=== PATIENT | female | born 1965 | race Caucasian/White ===

== ENCOUNTER → 2016-12-17 | Day surgery (SDC) | payer OTHER ==
[~2016-12-17] VITALS: Ht 165.1 cm; Wt 73.0 kg
[~2016-12-17] MED LIST: CEFAZOLIN 1GM IVPB FOR OMNI 50 ML IV PRN; COLE1TAB2 PO; DEXAMETHASONE SOD PHOS 20 MG/5 ML VIAL. ONE; DIAZ5TAB PO; ELET20TA PO; FAMOTIDINE 20 MG/2 ML VIAL ONE; FENTANYL PF 100 MCG/2 ML VIAL. IV PRN; FENTANYL PF 100 MCG/2 ML VIAL. ONE; GABA-586 PO; HYDR-2672 PO; HYDR-963 PO; HYDR-965 PO; HYDR-971 PO; HYDR25TA PO; HYDROCODONE/APAP 7.5/325MG TABLET. PO ONE; HYDROMORPHONE 2 MG/ML VIAL. IV PRN; IBUP-1007 PO; IV RINGERS,LACTATED 1000ML 1,000 ML IV SCH; LIDOCAINE 1% 1 ML SYRINGE. ID PRN; LIDOCAINE 2% 100 MG/5 ML DISP.SYRIN. ONE; MECL-51 PO; MIDAZOLAM HCL 2 MG/2 ML VIAL. ONE; MORPHINE SULFATE 2 MG/ML DISP.SYRIN. IV PRN; NAPR500T3 PO; OMEP20TA PO; ONDA4TAB7 PO; ONDANSETRON PF 4 MG/2 ML VIAL. IV PRN; ONDANSETRON PF 4 MG/2 ML VIAL. ONE; PROAIR HFA8.5 GM INH; PROCHLORPERAZINE 10 MG/2 ML VIAL. IV PRN; PROPOFOL 20 ML IV ONE; ROPIVacaine 0.2% PF 10 ML VIAL. ONE; SEVOFLURANE 31 TO 60 MINUTES. IH ONE; TIZA4CAP PO; diclofenac topical
--- NOTE | 2016-12-17 06:45 | EKG ---
[facility] [address] [place] [address] Test Date: 2016-12-17 Test Time: 06:52:05 Pat Name: HEATH RODRIGUEZ Department: Room: Gender: F [employer] Priest: JOSE : 1965 Requested By: BENJY STEVENSON Order Number: [id number] Reading MD: Measurements Intervals [place] Rate: 81 P: 59 [place]: 156 QRS: 65 QRSD: 70 T: 66 QT: 372 QTc: 438 Interpretive Statements SINUS RHYTHM NO SPECIFIC ECG ABNORMALITIES RI6.01 No previous ECG available for comparison
[2016-12-17] MEDS: FENTANYL PF 100 MCG/2 ML VIAL. IV PRN ×4 (09:10→09:56)
--- NOTE | 2016-12-17 09:24 | DISCH ---
DISCHARGE INSTRUCTIONS Condition on Discharge Condition on Discharge: Stable Activity After Discharge Activity Instructions for Disc: Activity as tolerated Weight Bearing Status after Di: Full weight bearing Diet after Discharge Diet after Discharge: Regular Wound Incision Care Wound/Incision Care: Ice to area for comfort, Keep wound elevated, Change dressing Other wound/incision instructi: Remove dressing 2 days may then shower Contacting the DRRiccardo after DC Call your doctor for: Concerns you may have Follow-Up Follow up with: Mariya 10-14 days BENJY STEVENSON MD Dec 17, 2016 09:24
--- NOTE | 2016-12-17 09:29 | PDOC ---
BRIEF OPERATIVE NOTE Date: Dec 17, 2016 Pre-Op Diagnosis loose body Post-Op Diagnosis same plus medial meniscal tear and medial compartment wear Procedure Performed left knee arthroscopy, partial medial menisectomy, removal loose body Surgeon Mariya Anesthesia Type: General Blood Loss <5cc Findings above Complications none BENJY STEVENSON MD Dec 17, 2016 09:29
[2016-12-17 10:35] VITALS: BP 116/72
--- NOTE | 2016-12-17 11:53 | OP ---
DATE OF SURGERY: 12/17/2016 PREOPERATIVE DIAGNOSES: Loose body of left knee with some mild medial compartment degenerative change. 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 PROCEDURES: Left knee arthroscopy, partial medial meniscectomy, removal of loose body. SURGEON: Nagi Meraz M.D. ANESTHESIA: General endotracheal. ESTIMATED BLOOD LOSS: Less than 5 mL. COMPLICATIONS: None. OPERATIVE INDICATIONS: The patient is a 51-year-old female who had pain and locking and catching sensation of her left knee that has been unresponsive to injections and other nonoperative management, these are severely affecting her activities of daily living. She has had literally locking up episodes of the knee, some more and some less severe, but several and an on ongoing fashion very limiting to her activities. The knee feels unstable and gives way on her with these episodes and is really getting worse. I had gone over with her the possibility of a knee arthroscopy and suturing and removal of a loose body ____ I could also address any other mechanical issues, but certainly could not undo any degenerative changes that are present, which would have to be dealt with on an ongoing symptomatic manner. All her questions were answered regarding the procedure and the possible risks of infection, nerve or blood vessel damage, medical or other anesthetic complications, continued pain among others and she agrees to proceed. DESCRIPTION OF PROCEDURE: The patient was identified, procedure verified, patient placed in the supine position on operating table and after adequate amounts of general endotracheal anesthesia were administered, left lower extremity was prepped and draped in the standard sterile fashion with a thigh tourniquet. After timeout was performed, the patient and procedure identified and verified, the left lower extremity was exsanguinated by Esmarch bandage. Tourniquet inflated to 300 mmHg. A lateral portal was established, medial portal established using spinal needle localization and the knee joint was systematically examined. She was noted to have excellent patellofemoral articulation with minimal chondromalacia present, no debridement required, good patellofemoral tracking. There was a small osteophyte or cartilage irregularity over the lateral aspect of the trochlear, but really outside of the normal weightbearing surface. No loose bodies were noted in the gutters or suprapatellar pouch. She did have grade 4 chondromalacia over an anterior medial portion of the tibial weightbearing surface and of the femoral condyle in a contacting fashion. No loose cartilage there was noted, but she did have a small tear in the posterior horn of the medial meniscus, which was trimmed back to stable tissue using arthroscopic shaver. ACL was noted to be intact. There was a loose body that was actually located at the lateral aspect of the intercondylar notch, which was retrieved through the enlarged medial portal. Lateral compartment showed a very small cartilage irregularity at the medial aspect toward the tibial spine, but otherwise really preceding cartilage and lateral meniscus was probed and found to be intact. Posterior compartment showed no evidence of loose body. The knee was then again toured to make sure no ____ loose bodies. There were some small cartilage fragments in the suprapatellar pouch. They were evacuated with arthroscopic shaver. The knee was drained of arthroscopic fluid. Portals closed with nylon sutures. Before sterile dressings were applied, the knee was injected with about 8 mL of 0.2% plain ropivacaine. Sterile dressings were then applied. Tourniquet was deflated after a total tourniquet time about 25 minutes. The patient was extubated and transferred to postop holding in stable condition, having tolerated the procedure well. NAGI MERAZ MD DR: AMANDA/randee JOB#: [id number] / [id number] LATOYA Soler MD
== END | disposition home or self-care (01) ==
LOC: SURG 06:01
PROVIDERS: ATTEND Orthopaedic Surgery
DX: S83.242A Other tear of medial meniscus, current injury, left knee, initial encounter (principal); M23.42 Loose body in knee, left knee; M94.262 Chondromalacia, left knee; M19.90 Unspecified osteoarthritis, unspecified site; E66.9 Obesity, unspecified; X58.XXXA Exposure to other specified factors, initial encounter; Y93.9 Activity, unspecified; Y92.9 Unspecified place or not applicable; Y99.9 Unspecified external cause status; Z90.710 Acquired absence of both cervix and uterus
CPT/HCPCS: 29881; 93005; J0690; J1100; J2250; J2405; J2704; J2795; J3010; S0028

== ENCOUNTER 2017-05-23 08:52 | Emergency (ER) | payer OTHER ==
[~2017-05-23] VITALS: Ht 170.2 cm; Wt 71.7 kg
[~2017-05-23 08:52] MED LIST changes: -CEFAZOLIN 1GM IVPB FOR OMNI 50 ML IV PRN; -DEXAMETHASONE SOD PHOS 20 MG/5 ML VIAL. ONE; -FAMOTIDINE 20 MG/2 ML VIAL ONE; -FENTANYL PF 100 MCG/2 ML VIAL. IV PRN; -FENTANYL PF 100 MCG/2 ML VIAL. ONE; -HYDR-2672 PO; +HYDR-2766 PO; -HYDROCODONE/APAP 7.5/325MG TABLET. PO ONE; -HYDROMORPHONE 2 MG/ML VIAL. IV PRN; -IV RINGERS,LACTATED 1000ML 1,000 ML IV SCH; -LIDOCAINE 1% 1 ML SYRINGE. ID PRN; -LIDOCAINE 2% 100 MG/5 ML DISP.SYRIN. ONE; -MIDAZOLAM HCL 2 MG/2 ML VIAL. ONE; -MORPHINE SULFATE 2 MG/ML DISP.SYRIN. IV PRN; -OMEP20TA PO; +OMEP20TA8 PO; -ONDANSETRON PF 4 MG/2 ML VIAL. IV PRN; -ONDANSETRON PF 4 MG/2 ML VIAL. ONE; -PROCHLORPERAZINE 10 MG/2 ML VIAL. IV PRN; -PROPOFOL 20 ML IV ONE; -ROPIVacaine 0.2% PF 10 ML VIAL. ONE; -SEVOFLURANE 31 TO 60 MINUTES. IH ONE
[2017-05-23] MEDS ORDERED: IPRATRPIUM/ALBUTEROL 0.5/2.5MG 3 ML NEBU. NEB ONE (09:15)
[2017-05-23] MEDS ORDERED: IBUPROFEN 800 MG TABLET. PO ONE (09:15)
[2017-05-23] MEDS ORDERED: CYCLOBENZAPRINE 10 MG TABLET. PO ONE (09:15)
[2017-05-23] MEDS ORDERED: CYCL10TA2 PO (09:26)
--- NOTE | 2017-05-23 09:26 | PHYS DOC ---
Past Medical History Past Medical History: Other Additional Past Medical Histor: IBS,migraines Past Surgical History: Cholecystectomy, Hysterectomy, Tonsillectomy Additional Past Surgical Histo: bowel resection,hernia Alcohol Use: None Drug Use: None Adult General Chief Complaint Chief Complaint: SHOULDER INJURY [facility] HPI Patient is a 52 year old female presents to the emergency department with a history of right upper back pain near the shoulder blade. Patient states she had woke up with the pain a few days ago. She states she had take Tylenol with no relief. She states she has increase pain when sitting up. Denies chest pain, SOA or difficulty breathing. She does state she smokes and has a smokers cough. She also states she takes albuterol in which she had used yesterday. Review of Systems Review of Systems Constitutional: Denies fever or chills [] Eyes: Denies change in visual acuity, redness, or eye pain [] HENT: Denies nasal congestion or sore throat [] Respiratory: Denies cough or shortness of breath [] Cardiovascular: No additional information not addressed in HPI [] GI: Denies abdominal pain, nausea, vomiting, bloody stools or diarrhea [] : Denies dysuria or hematuria [] Musculoskeletal: c/o right upper back pain near shoulder blade. Integument: Denies rash or skin lesions [] Neurologic: Denies headache, focal weakness or sensory changes [] Endocrine: Denies polyuria or polydipsia [] Current Medications Current Medications Current Medications Medications (Trade) Dose Ordered Sig/Eva Start Time Stop Time Status Last Admin Dose Admin Albuterol/ Ipratropium (Duoneb) 3 ml 1X ONCE 05/23/17 09:15 05/23/17 09:19 DC 05/23/17 09:24 3 ML Cyclobenzaprine HCl (Flexeril) 10 mg 1X ONCE 05/23/17 09:15 05/23/17 09:19 DC 05/23/17 09:36 10 MG Ibuprofen (Motrin) 800 mg 1X ONCE 05/23/17 09:15 05/23/17 09:19 DC 05/23/17 09:37 800 MG Allergies Allergies Allergies Coded Allergies Type Severity Reaction Last Updated Verified diflunisal Allergy Intermediate Hives 12/17/16 Yes erythromycin base Allergy Intermediate 12/11/16 Yes Physical Exam Physical Exam Constitutional: Well developed, well nourished, no acute distress, non-toxic appearance. [] HENT: Normocephalic, atraumatic, bilateral external ears normal, oropharynx moist, no oral exudates, nose normal. [] Eyes: PERRLA, EOMI, conjunctiva normal, no discharge. [] Neck: Normal range of motion, no tenderness, supple, no stridor. [] Cardiovascular:Heart rate regular rhythm, no murmur [] Lungs & Thorax: Bilateral breath sounds wheezes noted bilaterally Skin: Warm, dry, no erythema, no rash. [] Back: Right upper back tenderness noted by near the shoulder blade, paraspinal. Extremities: No tenderness, no cyanosis, no clubbing, ROM intact, no edema. [] Neurologic: Alert and oriented X 3, normal motor function, normal sensory function, no focal deficits noted. [] Psychologic: Affect normal, judgement normal, mood normal. [] Current Patient Data Vital Signs Vital Signs Date Time Temp Pulse Resp B/P (MAP) Pulse Ox O2 Delivery O2 Flow Rate FiO2 05/23/17 09:40 79 22 125/82 (96) 97 Room Air EKG EKG [] Radiology/Procedures Radiology/Procedures [] Course & Med Decision Making Course & Med Decision Making Pertinent Labs and Imaging studies reviewed. (See chart for details) Patient denied trauma or injury to the back area. Patient was provided with Flexeril and Ibuprofen here in the emergency department. 1003 Patient right upper back pain has decreased she is able to sit up with decreased pain and discomfort. Patient will be discharged home in stable condition. She will be encouraged to use Ibuprofen 800 mg every 8 hours with food. She will also be provided with Flexeril in which she was instructed that this medication will cause drowsiness do not take if you need to be alert and oriented. Recommended Ice packs to the area on 20 minutes and off 20 minutes several times a day. Patient agrees with discharge instructions, treatment regimen and followup with primary care provider. Patient was recommended to followup with PCP in 5-7 days. Signs and symptoms to return to the emergency department has been provided. All questions and concerns were answered at bedside. [] Dragon Disclaimer Dragon Disclaimer This electronic medical record was generated, in whole or in part, using a voice recognition dictation system. Departure Departure Impression: Primary Impression: Upper back pain on right side Disposition: HOME, SELF-CARE Condition: STABLE Referrals: LATOYA PEMBERTON MD (PCP) Patient Instructions: Back Pain, Adult, [id number] Additional Instructions: Activity as tolerated Medication as prescribed: Ibuprofen 800 mg every 8 hours with food stop taking if your develop upset stomach. Flexeril will cause drowsiness do not take if you need to be alert and oriented Ice packs on 20 minutes and off 20 minutes several times a day Followup with your primary care provider in 5-7 days Return to emergency department as needed Scripts Cyclobenzaprine Hcl (CYCLOBENZAPRINE HCL) 10 Mg Tablet 10 MG PO TID Y for MUSCLE SPASMS, #30 TAB Prov: TIAGO BEYER APRN 05/23/17 TIAGO BEYER APRN May 23, 2017 09:26
[2017-05-23 09:40] VITALS: BP 125/82
== END 2017-05-23 10:05 | disposition home or self-care (01) ==
LOC: ER 08:52
DX: M54.6 Pain in thoracic spine (principal); J41.0 Simple chronic bronchitis; F17.200 Nicotine dependence, unspecified, uncomplicated; K58.9 Irritable bowel syndrome, unspecified; G43.909 Migraine, unspecified, not intractable, without status migrainosus; Z90.710 Acquired absence of both cervix and uterus; Z90.49 Acquired absence of other specified parts of digestive tract; Z88.8 Allergy status to other drugs, medicaments and biological substances; Z88.1 Allergy status to other antibiotic agents
CPT/HCPCS: 94250; 94640; 99283; J7620

== ENCOUNTER 2017-06-03 09:24 | Emergency (ER) | payer OTHER ==
[~2017-06-03] VITALS: Ht 170.2 cm; Wt 68.0 kg
[~2017-06-03 09:24] MED LIST changes: +CYCL10TA2 PO
[2017-06-03 09:36] VITALS: BP 124/77
--- NOTE | 2017-06-03 10:22 | PHYS DOC ---
Past Medical History Past Medical History: Bronchitis, Other Additional Past Medical Histor: IBS,migraines, Past Surgical History: Cholecystectomy, Hysterectomy, Tonsillectomy Additional Past Surgical Histo: bowel resection,hernia, left knee surgery Additional Information: 1 ppd Alcohol Use: None Drug Use: None Adult General Chief Complaint Chief Complaint: [facility] HPI Patient is a 52 year old female presents to the emergency department after being seen on May 23 for right upper back pain. Patient states that she had no injury or no trauma. She still continues to state she's had no injury or trauma. She was provided with Flexeril recommended ibuprofen and follow-up with primary care physician patient states that she is unable to take off of work to be able to go and follow-up with her primary care physician. However today is a weekday in which she was should've been at work that was able to come into the emergency department. Patient states she still continues to have pain and discomfort she has increased pain and with movement of the right arm. Spoke with patient regards to follow-up with needing physical therapy to further help with pain and discomfort. Patient with full range of motion of the right arm and is able to push her self up from a lying position with the right arm. Review of Systems Review of Systems Constitutional: Denies fever or chills [] Eyes: Denies change in visual acuity, redness, or eye pain [] HENT: Denies nasal congestion or sore throat [] Respiratory: Denies cough or shortness of breath [] Cardiovascular: No additional information not addressed in HPI [] GI: Denies abdominal pain, nausea, vomiting, bloody stools or diarrhea [] : Denies dysuria or hematuria [] Musculoskeletal: right scapula pain and discomfort Neurologic: Denies headache, focal weakness or sensory changes [] Endocrine: Denies polyuria or polydipsia [] Allergies Allergies Allergies Coded Allergies Type Severity Reaction Last Updated Verified diflunisal Allergy Intermediate Hives 12/17/16 Yes erythromycin base Allergy Intermediate 12/11/16 Yes Physical Exam Physical Exam Constitutional: Well developed, well nourished, no acute distress, non-toxic appearance. [] HENT: Normocephalic, atraumatic, bilateral external ears normal, oropharynx moist, no oral exudates, nose normal. [] Eyes: PERRLA, EOMI, conjunctiva normal, no discharge. [] Neck: Normal range of motion, no tenderness, supple, no stridor. [] Cardiovascular:Heart rate regular rhythm, no murmur [] Lungs & Thorax: Bilateral breath sounds clear to auscultation [] Skin: Warm, dry, no erythema, no rash. [] Back: No tenderness Extremities: Right scapula tenderness, no cyanosis, no clubbing, ROM intact, no edema. full ROM right arm, peripheral pulses 2+ cap refill brisk < 2 seconds. Neurologic: Alert and oriented X 3, normal motor function, normal sensory function, no focal deficits noted. [] Psychologic: Affect normal, judgement normal, mood normal. [] Current Patient Data Vital Signs Vital Signs Date Time Temp Pulse Resp B/P (MAP) Pulse Ox O2 Delivery O2 Flow Rate FiO2 06/03/17 09:36 97.0 97 20 124/77 (93) 98 Room Air 97.0 EKG EKG [] Radiology/Procedures Radiology/Procedures [] Course & Med Decision Making Course & Med Decision Making Pertinent Labs and Imaging studies reviewed. (See chart for details) Recommended sling for the right arm for the patient. Recommended continue to use ibuprofen or Flexeril in which she should still have. Patient will be discharged home in stable condition with recommendations for ice packs on 20 minutes off 20 minutes several times a day. Patient agrees with discharge instructions treatment regimens and follow-up recommendations. Signs and symptoms to return back to emergency department and been provided. Recommended patient follow-up primary care physician for further evaluation for possible physical therapy or other pain management options. All questions and concerns was answered for the patient at her bedside. Patient has requested a work note for today. She'll be provided with 3 days so she may follow up with her primary care physician. [] Dragon Disclaimer Dragon Disclaimer This electronic medical record was generated, in whole or in part, using a voice recognition dictation system. Departure Departure Impression: Primary Impression: Upper back pain on right side Disposition: 01 HOME, SELF-CARE Condition: STABLE Referrals: LATOYA PEMBERTON MD (PCP) Patient Instructions: Back Pain, Adult, [id number] Additional Instructions: Activity as tolerated Wear the sling as needed for comfort Take the arm out of the sling and perform active range of motion Ice packs on 20 minutes off 20 minutes several times a day Followup with your primary care provider in 3-5 days Return to emergency department as needed for signs and symptoms that become worse. TIAGO BEYER [employer]LECT[employer] Jun 03, 2017 10:22
== END 2017-06-03 10:28 | disposition home or self-care (01) ==
LOC: ER 09:24
DX: M54.6 Pain in thoracic spine (principal); K58.9 Irritable bowel syndrome, unspecified; G43.909 Migraine, unspecified, not intractable, without status migrainosus; Z90.49 Acquired absence of other specified parts of digestive tract; Z90.710 Acquired absence of both cervix and uterus; Z88.1 Allergy status to other antibiotic agents; Z88.8 Allergy status to other drugs, medicaments and biological substances
CPT/HCPCS: 99282

== ENCOUNTER → 2017-06-23 | Outpatient (CLI) | payer OTHER ==
[2017-06-03 09:36] VITALS: BP 124/77
--- NOTE | 2017-06-23 12:38 | KCIC ---
Examination: MRI of the right shoulder without contrast HISTORY: History of right shoulder pain for one month COMPARISON: None available TECHNIQUE: Multiplanar, Multisequence MR imaging of the right shoulder performed without contrast FINDINGS: The long head of biceps tendon is within the bicipital groove. The attachment of the long head of the biceps tendon to the superior labral anchor grossly appears intact. There is moderate tendinosis of the supraspinatus, infraspinatus, subscapularis tendon. There is full-thickness tear, measuring 1 cm in transverse dimension, at the junction of the subscapularis and anterior fibers of the supraspinatus tendon with extension of fluid into subacromial subdeltoid bursa. There is moderate tendinosis of the subscapularis, supraspinatus, infraspinatus tendons. The attachment of the infraspinatus tendon grossly appears intact. There is mild increased signal identified throughout the labrum likely degeneration. Mild degenerative disease identified in the acromioclavicular joint. The acromion is type II. There is mild fatty infiltration of the supraspinatus muscle. Otherwise the muscle bulk grossly appears unremarkable. IMPRESSION: 1. Small focus of full-thickness tear at the junction of the anterior fibers of the supraspinatus tendon and subscapularis tendon. There is extension of fluid into subacromial subdeltoid bursa. 2. Moderate tendinosis of the rotator cuff. 3. Mild increased signal identified throughout the labrum likely degeneration. Electronically signed by: Lupillo Zuleta MD (06/23/2017 12:34 PM) [facility]
== END | disposition home or self-care (01) ==
LOC: KCIC MRI 11:00
PROVIDERS: ATTEND Family Medicine
DX: M75.101 Unspecified rotator cuff tear or rupture of right shoulder, not specified as traumatic (principal); M62.89 Other specified disorders of muscle
CPT/HCPCS: 73221

== ENCOUNTER 2017-07-15 08:40 | Day surgery (SDC) | payer OTHER ==
[~2017-07-15] VITALS: Ht 165.1 cm; Wt 70.0 kg
[~2017-07-15 08:40] MED LIST changes: +HYDROmorphone 2 MG/ML VIAL IV PRN; +IV RINGERS,LACTATED 1000ML 1,000 ML IV SCH; +LIDOCAINE 1% PF 2 ML VIAL. ID PRN; +MORPHINE SULFATE 2 MG/ML DISP.SYRIN. IV PRN; -NAPR500T3 PO; +NAPR500T4 PO; +ONDANSETRON PF 4 MG/2 ML VIAL. IV PRN; +PROCHLORPERAZINE 10 MG/2 ML VIAL. IV PRN; +fentaNYL PF VIAL 100 MCG/2 ML VIAL IV PRN
[2017-07-15] MEDS ORDERED: ONDANSETRON PF 4 MG/2 ML VIAL. ONE (09:19)
[2017-07-15] MEDS ORDERED: LIDOCAINE 2% PF Vial for OR 5 ML VIAL. ONE (09:19)
[2017-07-15] MEDS ORDERED: PROPOFOL 20 ML IV ONE (09:19)
[2017-07-15] MEDS ORDERED: fentaNYL PF VIAL 100 MCG/2 ML VIAL ONE (09:19)
[2017-07-15] MEDS ORDERED: MIDAZOLAM HCL/PF 2 MG/2 ML VIAL. ONE (09:19)
[2017-07-15] MEDS ORDERED: DEXAMETHASONE SOD PHOS 20 MG/5 ML VIAL. ONE (09:19)
[2017-07-15] MEDS ORDERED: EPINEPHrine VIAL 30 MG/30 ML VIAL ONE (11:33)
[2017-07-15] MEDS ORDERED: ROPIVacaine 0.5% PF 30 ML VIAL. ONE (12:08)
[2017-07-15] MEDS ORDERED: PHENYLEPHRINE in 0.9% NACL PF 1 MG/10 ML DISP.SYRIN. IV ONE (13:24)
[2017-07-15] MEDS ORDERED: GLYCOPYRROLATE 1 MG/5 ML VIAL. ONE (14:51)
[2017-07-15] MEDS ORDERED: NEOSTIGMINE METHYLSULFATE 5 MG/5 ML SYRINGE. ONE (14:51)
[2017-07-15] MEDS ORDERED: SEVOFLURANE > 120 MINUTES. IH ONE (14:51)
--- NOTE | 2017-07-15 15:37 | PDOC4 ---
Operative Note Operative Note Date of surgery: 07/15/2017 Preoperative diagnosis: Full-thickness supraspinatus tear, impingement, biceps compromise, acromioclavicular joint degenerative joint disease and pain Postoperative diagnosis: Same Procedure: Right shoulder arthroscopy arthroscopic rotator cuff repair bicipital tenodesis and subacromial decompression distal clavicle excision. Surgeon: Mariya Anesthesia: Gen. endotracheal plus interscalene block Estimated blood loss: Less than 10 mL Complications: None Operative indications: Agents a 52-year-old female with right shoulder pain post injury that is been unresponsive to nonoperative treatment MRI confirmed clinical suspicion of a full-thickness supraspinatus tear and also showed proximal long head biceps tendon compromise. She also has clinical findings of impingement and acromioclavicular joint degenerative joint disease and pain. I went over with her operative treatment options of arthroscopic rotator cuff repair and indicated that the rest of the pathology would be dealt with appropriately as well. We talked through the long recovery process rationale for protection of the repair extensive physical therapy required and the possibility of nonhealing reinjury infection nerve or blood vessel damage medical or other anesthetic consultations among others all her questions were answered she wants to proceed with surgical evaluation and treatment and informed consent was obtained Operative text: Patient was identified procedure verified patient placed in the supine position on the operating table. After adequate amounts of general endotracheal anesthesia plus pre-existing scalene block were obtained, she was placed in the decubitus position right side up all bony prominences were well- padded and the right shoulder was prepped and draped in standard sterile fashion and placed in the arthroscopic arm ballesteros with a total of 10 pounds of traction. After timeout was performed patient procedure identified and verified , a standard posterior portal was established an anterior portal established using spinal needle localization and the shoulder joint was examined systematically. She was noted to have a full-thickness tear of the supraspinatus tendon insertion subscapularis was intact as was the bare area of the humerus and capsule ligament structures. Superior labrum was very frayed as was the biceps anchor. Biceps tendon was tagged and superior labrum was debrided back to stable tissue. Glenohumeral joint was otherwise intact subacromial space was then entered and bursectomy was performed to allow visualization she had a very prominent type III acromion which was trimmed down with an arthroscopic bur to a type I distal clavicle was narrowed and arthritic and 1 cm was removed from the distal clavicle preserving the overlying joint capsule for stability. Bony fragments were removed with arthroscopic shaver and the rotator cuff footprint was debrided back to bleeding bony tissue but not decorticated. 2 [employer] hela coil anchors were placed along the medial row and sutures were placed in mattress fashion secured by sliding locking knots backed up by alternating post-half hitches. Lateral row repair and the biceps tenodesis were carried out with a total of 2 multi fix anchors placed laterally. Excellent watertight repair was noted under all degrees of internal/ external rotation. Portals were closed with buried Vicryl and nylon suture and Steri-Strips and Mastisol sterile dressings were applied patient was placed in an immobilizer extirpated transferred to postop holding in stable condition having tolerated procedure well BENJY STEVENSON MD Jul 15, 2017 15:37
--- NOTE | 2017-07-15 15:42 | DISCH ---
DISCHARGE INSTRUCTIONS Condition on Discharge Condition on Discharge: Stable Activity After Discharge Activity Instructions for Disc: Other, see below Other activity instructions: no active movement of right arm away from body Diet after Discharge Diet after Discharge: Regular Wound Incision Care Wound/Incision Care: Ice to area for comfort, Keep wound elevated, Change dressing Other wound/incision instructi: remove dressing in 2 days may then shower Community/Resources/Services Services at Discharge: PT EVALUATE & TREAT (passive range of motion right shoulder only 1 month postop, pendulum exercises and fine motor use right elbow at side okay) Contacting the DRRiccardo after DC Call your doctor for: Concerns you may have Follow-Up Follow up with: Mariya 1 week BENJY STEVENSON MD Jul 15, 2017 15:42
[2017-07-15] MEDS ORDERED: OXYC-327 PO (15:44)
[2017-07-15] MEDS ORDERED: ALBUTEROL SULFATE 2.5 MG/3 ML NEBU. NEB ONE (15:45)
[2017-07-15] MEDS ORDERED: oxyCODONE/APAP 7.5/325 1 TAB TABLET PO ONE (16:00)
[2017-07-15 16:15] VITALS: BP 119/73
--- NOTE | 2017-07-25 13:40 | PREOP HP ---
DATE OF SERVICE: 07/15/2017 The existing latest clinic note was actually on the chart and signed, nevertheless, this is shown as incomplete, and I am redictating. PRINICIPAL COMPLAINT: Right shoulder pain. HISTORY OF PRESENT ILLNESS: The patient was having some acute on chronic right shoulder pain that had been a few months in duration. She had the sudden severe pain and loss of range of motion when she woke up a month prior to her initial evaluation. Primary care provider ordered an MRI which showed a rotator cuff tear. We had previously discussed in clinic treatment options, and she wanted to proceed with surgery at that time. PAST MEDICAL HISTORY: Significant for migraine headaches and inflammatory bowel syndrome. 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 FAMILY HISTORY: Significant for mother and father both with diabetes, lung cancer in her father and diabetes and cancer in a brother. SOCIAL HISTORY: She is a current cigarette smoker, she smokes about a pack per day. Denies alcohol or drug use. She is and works as a home health aide. ALLERGIES: INCLUDE DOLOBID AND ERYTHROMYCIN. MEDICATIONS: List is reviewed. REVIEW OF SYSTEMS: Denies any chest pain, shortness of breath, radiating pain, numbness or tingling. PHYSICAL EXAMINATION: VITAL SIGNS: Per admission sheet. HEENT: Atraumatic, normocephalic. HEART: Regular rate and rhythm. LUNGS: Clear to auscultation bilaterally. ABDOMEN: Benign. EXTREMITIES: Examination of the right shoulder reveals rotator cuff weakness in all planes. No apprehension or instability. Positive impingement signs, tenderness over the acromioclavicular joint on palpation and compression on the right side, not present on the left. Normal motion and stability, alignment of bilateral elbows and wrists. IMAGING: MRI had shown a full thickness tear of the rotator cuff. IMPRESSION: Right rotator cuff tear. TREATMENT PLAN: I had previously discussed with her risks, benefits, postoperative course of possible operative treatment versus nonoperative treatment options. All her questions were answered. She wishes to proceed with surgical evaluation and treatment having understood the long recovery period, extensive physical therapy required, possibility of medical or other anesthetic complications including nonhealing, infection, nerve or blood vessel damage among others, and the surgical outpatient treatment is planned today. BENJY STEVENSON MD DR: AMANDA/randee JOB#: [id number] / [id number]
== END 2017-07-15 17:25 | disposition home or self-care (01) ==
LOC: SURG 08:40
PROVIDERS: ATTEND Orthopaedic Surgery
DX: S46.011A Strain of muscle(s) and tendon(s) of the rotator cuff of right shoulder, initial encounter (principal); S46.211A Strain of muscle, fascia and tendon of other parts of biceps, right arm, initial encounter; M75.41 Impingement syndrome of right shoulder; M19.011 Primary osteoarthritis, right shoulder; X58.XXXA Exposure to other specified factors, initial encounter; Y93.89 Activity, other specified; Y92.89 Other specified places as the place of occurrence of the external cause; Y99.8 Other external cause status; G43.909 Migraine, unspecified, not intractable, without status migrainosus; F17.200 Nicotine dependence, unspecified, uncomplicated; Z88.1 Allergy status to other antibiotic agents; Z88.8 Allergy status to other drugs, medicaments and biological substances; Z90.710 Acquired absence of both cervix and uterus; Z90.49 Acquired absence of other specified parts of digestive tract
CPT/HCPCS: 29822; 29824; 29826; 29827; 29828; 94640; C1713; J0171; J0690; J0780; J1100; J2250; J2370; J2405; J2704; J2710; J2795; J3010; J3490; J7120; J7613; J2001

== ENCOUNTER 2017-10-17 07:03 | Emergency (ER) | payer OTHER | END 2017-10-17 07:22 | disposition home or self-care (01) | LOC: ER 07:03 | DX: K04.7 Periapical abscess without sinus (principal); K02.9 Dental caries, unspecified; Z88.1 Allergy status to other antibiotic agents | CPT/HCPCS: 99283; 99283-25 ==

== ENCOUNTER 2017-12-04 11:04 | Emergency (ER) | payer OTHER | END 2017-12-04 11:54 | disposition home or self-care (01) | LOC: ER 11:04 | DX: M43.6 Torticollis (principal); K58.9 Irritable bowel syndrome, unspecified; G43.909 Migraine, unspecified, not intractable, without status migrainosus; Z88.1 Allergy status to other antibiotic agents; Z88.8 Allergy status to other drugs, medicaments and biological substances | CPT/HCPCS: 99283 ==

== ENCOUNTER 2017-12-15 07:19 | Emergency (ER) | payer OTHER ==
[2017-12-15] MEDS: oxyCODONE/APAP 5/325 1 TAB TABLET PO (07:43)
== END 2017-12-15 08:28 | disposition home or self-care (01) ==
LOC: ER 07:19
DX: M54.12 Radiculopathy, cervical region (principal); M43.6 Torticollis; M25.512 Pain in left shoulder; G89.29 Other chronic pain; K58.9 Irritable bowel syndrome, unspecified; Z88.1 Allergy status to other antibiotic agents; Z88.8 Allergy status to other drugs, medicaments and biological substances
CPT/HCPCS: 73030; 99284

== ENCOUNTER → 2017-12-25 | Outpatient (CLI) | payer OTHER | END | disposition home or self-care (01) | LOC: KCIC MRI 14:30 | DX: M54.12 Radiculopathy, cervical region (principal); M48.02 Spinal stenosis, cervical region | CPT/HCPCS: 72141 ==

== ENCOUNTER → 2018-01-01 | Outpatient (CLI) | payer OTHER | END | disposition home or self-care (01) | LOC: PNCL 12:37 | DX: M50.10 Cervical disc disorder with radiculopathy, unspecified cervical region (principal); M48.02 Spinal stenosis, cervical region; G89.29 Other chronic pain; J44.9 Chronic obstructive pulmonary disease, unspecified; M19.90 Unspecified osteoarthritis, unspecified site; F17.210 Nicotine dependence, cigarettes, uncomplicated; Z90.710 Acquired absence of both cervix and uterus; Z90.49 Acquired absence of other specified parts of digestive tract; Z98.890 Other specified postprocedural states; Z88.8 Allergy status to other drugs, medicaments and biological substances; Z79.899 Other long term (current) drug therapy | CPT/HCPCS: 99214 ==

== ENCOUNTER → 2018-01-15 | Outpatient (CLI) | payer OTHER ==
[~2018-01-15] MED LIST changes: -COLE1TAB2 PO; -CYCL10TA2 PO; -DIAZ5TAB PO; -ELET20TA PO; -GABA-586 PO; -HYDR-2766 PO; -HYDR-963 PO; -HYDR-965 PO; -HYDR-971 PO; -HYDR25TA PO; -HYDROmorphone 2 MG/ML VIAL IV PRN; -IBUP-1007 PO; +IOHEXOL 180 MG/ML 10 ML VIAL.; -IV RINGERS,LACTATED 1000ML 1,000 ML IV SCH; -LIDOCAINE 1% PF 2 ML VIAL. ID PRN; -MECL-51 PO; -MORPHINE SULFATE 2 MG/ML DISP.SYRIN. IV PRN; -NAPR500T4 PO; -OMEP20TA8 PO; -ONDA4TAB7 PO; -ONDANSETRON PF 4 MG/2 ML VIAL. IV PRN; -PROAIR HFA8.5 GM INH; -PROCHLORPERAZINE 10 MG/2 ML VIAL. IV PRN; -TIZA4CAP PO; -diclofenac topical; -fentaNYL PF VIAL 100 MCG/2 ML VIAL IV PRN; +methylPREDNISolone ACETATE 40 MG/ML VIAL.; +methylPREDNISolone ACETATE 80 MG/ML VIAL.
== END ==
LOC: PNCL 09:06
DX: M50.10 Cervical disc disorder with radiculopathy, unspecified cervical region (principal); Z79.899 Other long term (current) drug therapy; Z90.710 Acquired absence of both cervix and uterus; Z90.49 Acquired absence of other specified parts of digestive tract; Z88.8 Allergy status to other drugs, medicaments and biological substances; J44.9 Chronic obstructive pulmonary disease, unspecified; F17.210 Nicotine dependence, cigarettes, uncomplicated; Z98.890 Other specified postprocedural states; M19.90 Unspecified osteoarthritis, unspecified site; Z88.1 Allergy status to other antibiotic agents; G43.909 Migraine, unspecified, not intractable, without status migrainosus
CPT/HCPCS: 62321; J1030; J1040; Q9965

== ENCOUNTER → 2018-02-02 | Outpatient (CLI) | payer OTHER ==
[2018-02-02 15:29] LABS: ADD MAN DIFF? NO
[2018-02-02 15:31] LABS: BASO # 0.1 x10^3/uL (0.0-0.2); BASO % 1 % (0-3); EOS # 0.1 x10^3/uL (0.0-0.7); EOS % 1 % (0-3); HEMATOCRIT 44.3 % (36.0-47.0); HEMOGLOBIN 15.6 g/dL (12.0-15.5); LYMPH # 3.2 x10^3/uL (1.0-4.8); LYMPH % 28 % (24-48); MEAN CORPUSCULAR HEMOGLOBIN 32 pg (25-35); MEAN CORPUSCULAR HGB CONC 35 g/dL (31-37); MEAN CORPUSCULAR VOLUME 92 fL (79-100); MONO # 0.6 x10^3/uL (0.0-1.1); MONO % 5 % (0-9); NEUT # 7.7 x10^3uL (1.8-7.7); NEUT % 66 % (31-73); PLATELET COUNT 269 x10^3/uL (140-400); RED CELL DISTRIBUTION WIDTH 13.8 % (11.5-14.5); WHITE BLOOD COUNT 11.7 x10^3/uL (4.0-11.0)
[2018-02-02 15:49] LABS: ALBUMIN 3.4 g/dL (3.4-5.0); ALBUMIN/GLOBULIN RATIO 0.9 (1.0-1.7); ALK PHOS 115 U/L (46-116); ALT (SGPT) 21 U/L (14-59); ANION GAP 6 (6-14); AST (SGOT) 11 U/L (15-37); BLOOD UREA NITROGEN 12 mg/dL (7-20); BUN/CREATININE RATIO 20 (6-20); CALCIUM 9.2 mg/dL (8.5-10.1); CARBON DIOXIDE 29 mmol/L (21-32); CHLORIDE 106 mmol/L (98-107); CREATININE 0.6 mg/dL (0.6-1.0); GLUCOSE 123 mg/dL (70-99); POTASSIUM 4.1 mmol/L (3.5-5.1); SODIUM 141 mmol/L (136-145); TOTAL BILIRUBIN 0.4 mg/dL (0.2-1.0); TOTAL PROTEIN 7.4 g/dL (6.4-8.2)
[2018-02-05 11:57] LABS: MRSA BY PCR Negative (Negative)
== END | disposition home or self-care (01) ==
LOC: SURGPAT 13:28
DX: Z11.2 Encounter for screening for other bacterial diseases (principal); Z22.322 Carrier or suspected carrier of Methicillin resistant Staphylococcus aureus; R79.89 Other specified abnormal findings of blood chemistry
CPT/HCPCS: 36415; 80053; 85025; 87641

== ENCOUNTER 2018-02-13 07:33 | Observation (INO) | payer OTHER ==
[~2018-02-13 07:33] MED LIST changes: +DEXAMETHASONE SOD PHOS 20 MG/5 ML VIAL.; +HYDROmorphone 2 MG/ML VIAL IV; -IOHEXOL 180 MG/ML 10 ML VIAL.; +KETOROLAC 60 MG/2 ML INJ FOR OR.; +LIDOCAINE 1% PF 2 ML VIAL. ID; +LIDOCAINE 2% PF Vial for OR 5 ML VIAL.; +MIDAZOLAM HCL/PF 2 MG/2 ML VIAL.; +MINERAL OIL/PETROLATUM,WHITE OPHTH OINT 3.5GM TUBE.; +MORPHINE SULFATE 4 MG/ML DISP.SYRIN. IV; +ONDANSETRON PF 4 MG/2 ML VIAL.; +ONDANSETRON PF 4 MG/2 ML VIAL. IV; +PHENYLEPHRINE 10 MG/ML VIAL.; +PROPOFOL 20 ML IV; +PROPOFOL 50 ML IV; +REMIFENTANIL 2 MG VIAL. IV; +ROCURONIUM 50 MG/5 ML VIAL.; +fentaNYL PF VIAL 100 MCG/2 ML VIAL IV; -methylPREDNISolone ACETATE 40 MG/ML VIAL.; -methylPREDNISolone ACETATE 80 MG/ML VIAL.
[2018-02-13] MEDS: IV RINGERS,LACTATED 1000ML 1,000 ML IV (08:01)
[2018-02-13] MEDS: BUPIVAC MPF-EPI 0.5%-1:200000 30 ML VIAL. INJ (09:47)
[2018-02-13] MEDS: GELATIN SPONGE SIZE 100. (09:47)
[2018-02-13] MEDS: BACITRACIN 50,000 UNIT in IV NORMAL SALINE 1000ML BAG 1,000 ML IRR (09:47)
[2018-02-13] MEDS: THROMBIN TOPICAL 20,000 UNIT SPRAY.SYRN KIT TP (09:47)
[2018-02-13] MEDS ORDERED: PROPOFOL 50 ML IV (09:56)
[2018-02-13] MEDS ORDERED: fentaNYL PF VIAL 100 MCG/2 ML VIAL ×2 (10:11→12:43)
[2018-02-13] MEDS ORDERED: DESFLURANE > 120 MINUTES IH (10:26)
[2018-02-13] MEDS ORDERED: fentaNYL PF VIAL 100 MCG/2 ML VIAL IV (11:30)
[2018-02-13] MEDS ORDERED: MAGNESIUM HYDROXIDE 2,400 MG/30 ML ORAL.SUSP. PO (11:30)
[2018-02-13] MEDS ORDERED: ACETAMINOPHEN 325 MG TABLET. PO (11:30)
[2018-02-13] MEDS ORDERED: CALCIUM CARBONATE 500 MG TAB.CHEW PO (11:30)
[2018-02-13] MEDS ORDERED: 0.9 % SODIUM CHLORIDE 10 ML DISP.SYRIN. IV (11:30)
[2018-02-13] MEDS ORDERED: MAG HYDROX/ALUMINUM HYD/SIMETH 30 ML ORAL.SUSP PO (11:30)
[2018-02-13] MEDS ORDERED: NON FORMULARY ITEM (Albuterol Sulfate (Proair Hfa Inhaler) 1 PUFF) INH (11:30)
[2018-02-13] MEDS ORDERED: BENZONATATE 200 MG PO (11:30)
[2018-02-13] MEDS ORDERED: ZOLPIDEM 5 MG TABLET. PO (11:30)
[2018-02-13] MEDS ORDERED: ALBUTEROL SULFATE 2.5 MG/3 ML NEBU. NEB (11:30)
[2018-02-13] MEDS ORDERED: diphenhydrAMINE 50 MG/ML VIAL IV (11:30)
[2018-02-13] MEDS ORDERED: ONDANSETRON PF 4 MG/2 ML VIAL. IV (11:30)
[2018-02-13] MEDS ORDERED: MORPHINE SULFATE 4 MG/ML DISP.SYRIN. (11:47)
[2018-02-13] MEDS ORDERED: PROCHLORPERAZINE 10 MG/2 ML VIAL. (11:50)
[2018-02-13] MEDS: fentaNYL PF VIAL 100 MCG/2 ML VIAL IV ×7 (11:53→22:20)
[2018-02-13] MEDS: PROCHLORPERAZINE 10 MG/2 ML VIAL. IV (11:53)
[2018-02-13] MEDS: POTASSIUM CL 20MEQ D5-0.45NACL 1,000 ML IV (13:55)
[2018-02-13] MEDS: ceFAZolin SODIUM IV Push 1 GM VIAL. IVP ×2 (13:56→21:09)
[2018-02-13] MEDS: METHOCARBAMOL 750 MG TABLET PO ×2 (14:00→21:09)
[2018-02-13] MEDS ORDERED: ceFAZolin SODIUM 1 GM in IV DEXTROSE 5% 50 ML IV (17:00)
[2018-02-13] MEDS: DOCUSATE SODIUM 100 MG CAPSULE. PO (21:00)
[2018-02-13] MEDS: COLESTIPOL HCL 1 GM TABLET PO (22:19)
[2018-02-13] MEDS: oxyCODONE/APAP 7.5/325 1 TAB TABLET PO (22:26)
[2018-02-14] MEDS: fentaNYL PF VIAL 100 MCG/2 ML VIAL IV ×2 (00:38→03:26)
[2018-02-14] MEDS: diphenhydrAMINE HCL 25 MG CAPSULE PO (01:35)
[2018-02-14] MEDS: ceFAZolin SODIUM IV Push 1 GM VIAL. IVP (04:37)
[2018-02-14] MEDS: oxyCODONE/APAP 7.5/325 1 TAB TABLET PO (06:50)
[2018-02-14] MEDS: DOCUSATE SODIUM 100 MG CAPSULE. PO (09:27)
[2018-02-14] MEDS: METHOCARBAMOL 750 MG TABLET PO (09:27)
== END 2018-02-14 09:53 | disposition home or self-care (01) ==
LOC: SURG 07:33 → 4 NORTH 11:19
DX: M50.122 Cervical disc disorder at C5-C6 level with radiculopathy (principal); J44.9 Chronic obstructive pulmonary disease, unspecified; F17.210 Nicotine dependence, cigarettes, uncomplicated; M19.90 Unspecified osteoarthritis, unspecified site; Z82.49 Family history of ischemic heart disease and other diseases of the circulatory system; Z83.3 Family history of diabetes mellitus; Z87.442 Personal history of urinary calculi; Z87.891 Personal history of nicotine dependence
CPT/HCPCS: 20931; 76000; 96374; 96375; 96376; 97161-GP; A7015; C1713; G0378; G0379; J0690; J0780; J1100; J1885; J2250; J2270; J2405; J2704; J3010; J3490; J7030; J7120; Q0163

== ENCOUNTER → 2018-03-12 | Outpatient (CLI) | payer OTHER | END | disposition home or self-care (01) | LOC: KCIC 10:52 | DX: M54.2 Cervicalgia (principal) | CPT/HCPCS: 72040 ==

== ENCOUNTER → 2018-05-12 | Outpatient (CLI) | payer OTHER | END | disposition home or self-care (01) | LOC: KCIC 15:11 | DX: Z48.811 Encounter for surgical aftercare following surgery on the nervous system (principal); M43.22 Fusion of spine, cervical region; M17.12 Unilateral primary osteoarthritis, left knee; M19.011 Primary osteoarthritis, right shoulder; J44.9 Chronic obstructive pulmonary disease, unspecified; Z90.49 Acquired absence of other specified parts of digestive tract | CPT/HCPCS: 72040 ==

== ENCOUNTER → 2018-07-28 | Outpatient (CLI) | payer OTHER ==
[2018-02-14 07:00] VITALS: BP 107/51
[~2018-07-28] MED LIST changes: +ACET500T68 PO; +BENZ200C47 PO; +COLE1TAB2 PO; +CYCL10TA2 PO; -DEXAMETHASONE SOD PHOS 20 MG/5 ML VIAL.; +DIAZ5TAB PO; +DOXY100C14 PO; +ELET20TA PO; +GABA-586 PO; +HYDR-2766 PO; +HYDR-963 PO; +HYDR-965 PO; +HYDR-971 PO; +HYDR25TA PO; -HYDROmorphone 2 MG/ML VIAL IV; +IBUP-1007 PO; +IBUP-1060 PO; -KETOROLAC 60 MG/2 ML INJ FOR OR.; -LIDOCAINE 1% PF 2 ML VIAL. ID; -LIDOCAINE 2% PF Vial for OR 5 ML VIAL.; +MECL-51 PO; +METH-37 PO; +METH4TAB2 PO; -MIDAZOLAM HCL/PF 2 MG/2 ML VIAL.; -MINERAL OIL/PETROLATUM,WHITE OPHTH OINT 3.5GM TUBE.; -MORPHINE SULFATE 4 MG/ML DISP.SYRIN. IV; +NAPR-514 PO; +NAPR500T8 PO; +OMEP20TA8 PO; +ONDA4TAB7 PO; -ONDANSETRON PF 4 MG/2 ML VIAL.; -ONDANSETRON PF 4 MG/2 ML VIAL. IV; +OXYC-323 PO; +OXYC-327 PO; +PENI500T PO; -PHENYLEPHRINE 10 MG/ML VIAL.; +PROAIR HFA8.5 GM INH; -PROPOFOL 20 ML IV; -PROPOFOL 50 ML IV; -REMIFENTANIL 2 MG VIAL. IV; -ROCURONIUM 50 MG/5 ML VIAL.; +TIZA4CAP PO; +diclofenac topical; -fentaNYL PF VIAL 100 MCG/2 ML VIAL IV
--- NOTE | 2018-07-28 13:31 | KCIC ---
EXAM: Cervical spine, 2 views. HISTORY: Pain. Fall. COMPARISON: None. FINDINGS: 2 views of the cervical spine are obtained. There is instrumented anterior spinal fusion and interbody fusion and C5-C6. There is degenerative endplate remodeling at multiple levels. There is facet arthropathy at multiple levels. There is no fracture or evidence of instrumentation loosening. IMPRESSION: 1. Instrumented fusion at C5-C6. 2. Multilevel degenerative change. Electronically signed by: Beena Quiñonez MD (07/28/2018 1:28 PM) [facility]
== END | disposition home or self-care (01) ==
LOC: KCIC 10:03
PROVIDERS: ATTEND Neurological Surgery
DX: M47.892 Other spondylosis, cervical region (principal); Z91.81 History of falling; Z98.1 Arthrodesis status
CPT/HCPCS: 72040

== ENCOUNTER 2018-10-08 11:38 | Emergency (ER) | payer OTHER ==
[~2018-10-08] VITALS: Ht 170.2 cm; Wt 63.5 kg
[~2018-10-08 11:38] MED LIST changes: +ALBU2.5V8 INH; -GABA-586 PO; +GABA300C18 PO; -HYDR-2766 PO; +HYDR-2769 PO; +HYDR-3135 PO; +HYDR-3164 PO; +HYDR-3165 PO; -HYDR-963 PO; -HYDR-965 PO; -HYDR-971 PO; -OXYC-323 PO; -OXYC-327 PO; +OXYC1TAB15 PO; +OXYC1TAB19 PO; -PROAIR HFA8.5 GM INH
[2018-10-08 12:06] VITALS: BP 148/74
[2018-10-08] MEDS ORDERED: DOXY100T PO (12:17)
--- NOTE | 2018-10-08 12:19 | PHYS DOC ---
Past Medical History Past Medical History: Bronchitis, Other Additional Past Medical Histor: IBS,migraines, chronic neck/shoulder pain Past Surgical History: Cholecystectomy, Hysterectomy, Tonsillectomy Additional Past Surgical Histo: bowel resection,hernia, left knee surgery Alcohol Use: None Drug Use: None Adult General Chief Complaint Chief Complaint: EARACHE/EAR PAIN [facility] HPI Patient is a 53 year old f with cc of ear pain. sinus pressure moderate dull nonradiating worse with cough and time cough x 5-7 days. Review of Systems Review of Systems Constitutional: Denies fever or chills [] pos right ear pain Respiratory: Cardiovascular: No additional information not addressed in HPI [] GI: Denies abdominal pain, nausea, vomiting, bloody stools or diarrhea [] Neurologic: Denies headache, focal weakness or sensory changes [] Endocrine: Denies polyuria or polydipsia [] All other systems were reviewed and found to be within normal limits, except as documented in this note. Allergies Allergies Allergies Coded Allergies Type Severity Reaction Last Updated Verified diflunisal Allergy Intermediate Hives 07/15/17 Yes erythromycin base Allergy Intermediate 02/13/18 Yes Physical Exam Physical Exam Constitutional: Well developed, well nourished, no acute distress, non-toxic appearance. [] HENT: Normocephalic, atraumatic, bilateral external ears normal, oropharynx moist, no oral exudates, nose normal. [] right tm erythema with loss landamrks Eyes: PERRLA, EOMI, conjunctiva normal, no discharge. [] sinus pressure and ttp noted max and frontal Neck: Normal range of motion, no tenderness, supple, no stridor. [] Cardiovascular:Heart rate regular rhythm, no murmur [] Lungs & Thorax: Bilateral breath sounds clear to auscultation [] reactive cough Abdomen: Bowel sounds normal, soft, no tenderness, no masses, no pulsatile masses. [] Skin: Warm, dry, no erythema, no rash. [] Back: No tenderness, no CVA tenderness. [] Extremities: No tenderness, no cyanosis, no clubbing, ROM intact, no edema. [] Neurologic: Alert and oriented X 3, normal motor function, normal sensory function, no focal deficits noted. [] Psychologic: Affect normal, judgement normal, mood normal. [] Current Patient Data Vital Signs Vital Signs Date Time Temp Pulse Resp B/P (MAP) Pulse Ox O2 Delivery O2 Flow Rate FiO2 10/08/18 12:06 98.6 94 18 148/74 (98) 97 Room Air 98.6 EKG EKG [] Radiology/Procedures Radiology/Procedures [] Course & Med Decision Making Course & Med Decision Making Pertinent Labs and Imaging studies reviewed. (See chart for details) []Overall well-appearing 53-year-old female presenting with upper respiratory infection sinus pressure frequent coughing mucous production also evidence of otitis media on the right. Perception for doxycycline return precautions discussed continue fxlb-hbi-[id number] agents would expect improvement in the next few days. Dragon Disclaimer Dragon Disclaimer This electronic medical record was generated, in whole or in part, using a voice recognition dictation system. Departure Departure Impression: Primary Impression: Otitis media Disposition: 01 HOME, SELF-CARE Condition: STABLE Patient Instructions: Otitis Media, Adult, Zvlk-ui-Qzow Scripts Albuterol Sulfate (PROAIR HFA INHALER) 8.5 Gm Hfa.aer.ad 1 PUFF INH PRN Q6HRS PRN for SHORTNESS OF BREATH, #1 INHALER 0 Refills Prov: MASON FOUNTAIN MD 10/08/18 Doxycycline Hyclate (DOXYCYCLINE HYCLATE) 100 Mg Tablet 1 TAB PO BID, #14 TAB Prov: MASON FOUNTAIN MD 10/08/18 MASON FOUNTAIN MD Oct 08, 2018 12:19
[2018-10-08] MEDS ORDERED: ALBU2.5V8 INH (12:20)
== END 2018-10-08 12:32 | disposition home or self-care (01) ==
LOC: ER 11:38
DX: H66.91 Otitis media, unspecified, right ear (principal); J06.9 Acute upper respiratory infection, unspecified; Z90.49 Acquired absence of other specified parts of digestive tract; Z98.890 Other specified postprocedural states
CPT/HCPCS: 99283

== ENCOUNTER → 2018-11-06 | Outpatient (CLI) | payer OTHER ==
[2018-10-08 12:06] VITALS: BP 148/74
[~2018-11-06] MED LIST changes: +DOXY100T PO
--- NOTE | 2018-11-06 09:11 | RAD ---
MRI Cervical Spine Without Contrast History: Worsening neck pain with left arm radiculopathy, history of cervical fusion Technique: Multiplanar, multi sequential noncontrast MR imaging was performed of the cervical spine. Comparison: December 25, 2017 Findings: There is motion degradation for axial images. Since the previous exam, there has been anterior cervical fusion at C5-C6. Cervical cord caliber is within normal limits without significant focal signal abnormality. Cervical vertebral body stature and AP alignment are maintained. There are again posterior annular tear C3-4, C4-C5, C6-7. There is very mild C6-7 endplate edema. There is minimal degenerative disc disease C6-7. Not fully included, there is right greater than left at least moderate maxillary sinus mucosal thickening with possible air-fluid levels. C2-C3: Neural foramina and spinal canal are adequate. C3-C4: There is again minimal disc osteophyte complex and possible tiny superimposed protrusion eccentric to the far right lateral recess, spinal canal overall adequate. There is again right uncovertebral degenerative change. Neural foramina are overall adequate. C4-C5: There is again left facet degenerative change. Spinal canal and right neural foramen are adequate, mild posterior narrowing of the left neural foramen. C5-C6: Previously seen protrusion/extrusion at this level is no longer visualized. Central canal is adequate. Right neural foramen is adequate. Facet and uncovertebral degenerative change contributes to moderate to severe narrowing of the left neural foramen. C6-C7: There is a somewhat more prominent extrusion extending very slightly above and below the intervertebral disc space more centrally about the 2 to 3 mm AP by about 9 mm CC by approximately at least 4 mm transverse. There is mild indentation upon the ventral thecal sac, central canal narrowed to about 8 to 9 mm slightly greater. Not apparent on previous exam, there is also likely component of protrusion/extrusion in the far left lateral recess as suggested on the sagittal images with likely very mild indentation upon the ventral thecal sac, also probable extent into the inferior left C6-7 neural foramen such as seen on sagittal images 4 and 5 estimated about 4 mm AP by 4 mm CC with contact of the undersurface exiting left C7 nerve root. However findings are poorly visualized on the motion degraded axial images. There is probable moderate inferior narrowing of the left neural foramen although also poorly visualized on axial images. Right neural foramen is overall adequate. C7-T1: Spinal canal and neural foramina are overall adequate. Impression: 1. Comparing with the December 2017 exam, there has been anterior cervical fusion C5-C6, spinal canal now adequate at this level. Previously seen small extrusion at C6-7 is somewhat larger with increased mild central canal stenosis about 8 to 9 mm. Poorly distinguished on the motion degraded axial images, there is likely small protrusion/extrusion eccentric to the far left lateral recess at C6-7 extending into the inferior left C6-7 neural foramen with contact undersurface exiting left C7 nerve root. There is moderate to severe narrowing of the left C5-6 neural foramen due to facet and uncovertebral degenerative change. 2. Not fully evaluated, there is bilateral maxillary sinus mucosal thickening also with suspected air-fluid levels suggestive of acute sinusitis. Electronically signed by: Benjamín Kauffman MD (11/06/2018 9:06 AM) [facility]
== END | disposition home or self-care (01) ==
LOC: MRI 07:43
PROVIDERS: ATTEND Neurological Surgery
DX: M50.11 Cervical disc disorder with radiculopathy, high cervical region (principal); M48.02 Spinal stenosis, cervical region; M50.122 Cervical disc disorder at C5-C6 level with radiculopathy; M25.78 Osteophyte, vertebrae; R60.0 Localized edema
CPT/HCPCS: 72141

== ENCOUNTER 2018-11-19 03:41 | Emergency (ER) | payer OTHER ==
[~2018-11-19] VITALS: Ht 157.5 cm; Wt 63.5 kg
[~2018-11-19 03:41] MED LIST changes: +ORPH100T PO; +PRED20TA PO
[2018-11-19 03:45] VITALS: BP 140/71
[2018-11-19] MEDS ORDERED: MORPHINE SULFATE 10 MG/ML VIAL. IM ONE (04:15)
[2018-11-19] MEDS ORDERED: diazePAM 5 MG TABLET PO ONE (04:15)
--- NOTE | 2018-11-19 04:21 | PHYS DOC ---
Past Medical History Past Medical History: Asthma, Gallstones Past Surgical History: Cholecystectomy, Hysterectomy Alcohol Use: None Drug Use: None Adult General Chief Complaint Chief Complaint: PAIN CONTROL HPI HPI Patient is a 53 year old female with cervical radiculopathy who presents for pain control. She has an upcoming surgery scheduled with Dr. Diaz and has been taking oxycodone and Valium for pain management. She had been taking two tabs oxycodone q6h as needed. Earlier she took 3 tabs and tried several hot showers. When the pain did not improve she called Dr. Diaz's nurse who recommended she come to ED for pain control. Currently she complains of shooting pains over her left shoulder and down her arm exacerbated from baseline. Review of Systems Review of Systems Constitutional: Denies fever or chills [] HENT: Denies nasal congestion or sore throat [] Respiratory: Denies cough or shortness of breath [] GI: Denies abdominal pain, nausea, vomiting, or diarrhea [] : Denies dysuria or hematuria [] Musculoskeletal: Reports pain in left neck radiating down arm Integument: Denies rash or skin lesions [] Neurologic: Denies headache, focal weakness, reports numbness and tingling down left arm Complete systems were reviewed and found to be within normal limits, except as documented in this note. Current Medications Current Medications Current Medications Medications (Trade) Dose Ordered Sig/Eva Start Time Stop Time Status Last Admin Dose Admin Diazepam (Valium) 5 mg 1X ONCE 11/19/18 04:15 11/19/18 04:16 DC 11/19/18 04:17 5 MG Morphine Sulfate (Morphine Sulfate) 10 mg 1X ONCE 11/19/18 04:15 11/19/18 04:16 DC 11/19/18 04:17 10 MG Allergies Allergies Allergies Coded Allergies Type Severity Reaction Last Updated Verified diflunisal Allergy Intermediate 11/01/18 Yes erythromycin base Allergy Intermediate 11/01/18 Yes Physical Exam Physical Exam Constitutional: Well developed, well nourished, appears uncomfortable. [] HENT: Normocephalic, atraumatic, bilateral external ears normal, oropharynx moist, no oral exudates, nose normal. [] Eyes: PERRL, EOMI, xanthoma medial to left eye Neck: tenderness on left side of neck, no JVD Cardiovascular:Heart rate regular rhythm, no murmur [] Lungs & Thorax: Breath sounds decreased bilaterally Abdomen: soft, no tenderness, no distention [] Skin: Warm, dry, no erythema, no rash. [] Extremities: Tenderness over left shoulder extending distally down arm [] Neurologic: Alert and oriented X 3, normal motor function, no focal deficits noted. [] Psychologic: Affect normal, judgement normal, anxious. [] Current Patient Data Vital Signs Vital Signs Date Time Temp Pulse Resp B/P (MAP) Pulse Ox O2 Delivery O2 Flow Rate FiO2 11/19/18 04:17 18 96 Room Air 11/19/18 03:45 98.0 108 140/71 (94) 98.0 EKG EKG [] Radiology/Procedures Radiology/Procedures [] Course & Med Decision Making Course & Med Decision Making Pertinent Labs and Imaging studies reviewed. (See chart for details) Patient presented for pain control. She has cervical radiculopathy and has upcoming surgery scheduled with Dr. Diaz. She has prescriptions for oxycodone for pain management and when prescribed dose wasn't effective along with other home remedies she called Dr. Limon's nurse who suggested she come to ED for control. Patient treated with morphine and valium with improvement in symptomatology. She will be discharged with limited supply of valium as she was just recently provided a prescription for oxycodone on 11/16. Dragon Disclaimer Dragon Disclaimer This electronic medical record was generated, in whole or in part, using a voice recognition dictation system. Departure Departure Impression: Primary Impression: Chronic neck pain Disposition: 01 HOME, SELF-CARE Condition: STABLE Referrals: LATOYA PEMBERTON MD (PCP) ARIELLE DIAZ MD Patient Instructions: Cervical Radiculopathy, [id number], Chronic Pain Management Scripts Diazepam (VALIUM) 5 Mg Tablet 5 MG PO Q8HRS PRN for MUSCLE PAIN, #10 TAB Prov: DAYANARA HERNANDEZ DO 11/19/18 DAYANARA HERNANDEZ DO Nov 19, 2018 04:21
[2018-11-19] MEDS ORDERED: DIAZ5TAB PO (04:26)
[2018-11-24] MEDS ORDERED: DOCU-109 PO (11:48)
[2018-11-24] MEDS ORDERED: OXYC5TAB4 PO (11:48)
[2018-11-24] MEDS ORDERED: METH750T2 PO (11:48)
== END 2018-11-19 04:58 | disposition home or self-care (01) ==
LOC: ER 03:41 → MERGE 03:41 → ER 04:58
DX: G89.29 Other chronic pain (principal); M54.2 Cervicalgia; M54.12 Radiculopathy, cervical region; J45.909 Unspecified asthma, uncomplicated; Z88.1 Allergy status to other antibiotic agents; Z88.8 Allergy status to other drugs, medicaments and biological substances
CPT/HCPCS: 96372; 99283; J2270

== ENCOUNTER 2018-11-23 07:03 | Observation (INO) | payer OTHER ==
--- NOTE | 2018-11-20 14:03 | PREOP HP ---
DATE OF SERVICE: 11/23/2018. HISTORY OF PRESENT ILLNESS: The patient is a pleasant 53-year-old who 9 months ago, underwent an ACDF at C5-C6 and she did well. Several weeks ago, she acutely developed severe pain in her neck, which radiates into her left arm. She noted tingling in her left hand, primarily in the middle and index fingers. She said that the pain was a 10/10. Sitting makes her problem worse. She has been taking Percocet. She has been virtually completely inactive since the problem began because of the severe pain. She says that she has been to the Emergency Room twice because of her severe pain. There is no pain on the right side. She says the pain radiates from her neck into her shoulder and then the posterior arm across her forearm and into her hand. She feels as though there is weakness in her left arm. PAST MEDICAL HISTORY: COPD, headaches, neck injury, nephrolithiasis, kidney stones, stomach and intestinal disease, tonsillitis, and arthritis. PAST SURGICAL HISTORY: Hysterectomy in 1984, hernia repair in 1985 and 1991, cholecystectomy 2001, colon resection in 2009, tonsillitis 1999, left knee surgery in 2008, right shoulder surgery in 2016, left knee surgery in 2016, a colectomy in 2009, ACDF C5-C6 in 02/2018. FAMILY HISTORY: Cancer, hypertension, diabetes, [place], headache and spine problems. SOCIAL HISTORY: She works in the home. , with 5 children. Rarely exercises. Smokes 1 pack per day and has for 35 years. Denies alcohol consumption. ALLERGIES: DOLOBID AND ERYTHROMYCIN. CURRENT MEDICATIONS: Colestipol, ondansetron, meclizine, Percocet, Voltaren, prednisone, Valium, Voltaren gel, Percocet 5. REVIEW OF SYSTEMS: A 12-point review of systems was obtained and is noncontributory except for that mentioned above. PHYSICAL EXAMINATION: NEUROSURGERY EXAMINATION: GENERAL APPEARANCE: Alert, pleasant, moderately severe distress from neck and left arm pain. HEAD: Normocephalic and atraumatic. NECK AND THYROID: Severe tenderness with palpation of posterior cervical region and over the left trapezius. SKIN: Warm and dry. MUSCULOSKELETAL: Cervical paraspinal muscle bulk is normal, restricted range of motion of the cervical spine, normal range of motion of the upper extremities bilaterally. EXTREMITIES: No clubbing, cyanosis or edema. NEUROLOGIC: Alert and oriented x 3, normal recent and remote memory, strength 5/5 in bilateral upper and lower extremities except 4/5, left triceps, sensory was intact to light touch in the upper and lower extremities except for decrease in the left index and middle fingers, reflexes were present and symmetric in the upper and lower extremities bilaterally except for an absent left triceps reflex, normal gait. IMAGING: I reviewed her cervical MRI scan from 11/06/2018. On that study, there are postoperative changes from an ACDF at C5-C6. At C6-C7, there is left lateral recess herniated disk along with significant disk bulging at that level and the central canal. The disk appears to occupy the left neural foramen and is in contact with the undersurface of the exiting left C7 nerve root. ASSESSMENT: 1. Cervical disk disorder at C6-C7 level with radiculopathy. 2. Cervicalgia. PLAN: She has developed a disk herniation at C6-C7, the level below her previous surgery. This is markedly compressing the C7 nerve root on the left and causing her severe radiculopathy with numbness and significant left triceps weakness. I am recommending an ACDF at this level. I did speak with her about the surgery and the risks involved. She would strongly like to go ahead. We will make the arrangements. ARIELLE DIAZ MD DR: BELLE/randee JOB#: [id number] / [id number] JUDSON
[2018-11-23] VITALS (7 sets, daily range): BP systolic 120–139; BP diastolic 74–96
[~2018-11-23] VITALS: Ht 157.5 cm; Wt 63.5 kg
[~2018-11-23 07:03] MED LIST changes: +BACITRACIN 50,000 UNIT in IV NORMAL SALINE 1000ML BAG 1,000 ML IRR ONE; +HYDROmorphone 2 MG/ML VIAL IV PRN; +IV RINGERS,LACTATED 1000ML 1,000 ML IV SCH; +LIDOCAINE 1% PF 2 ML VIAL. ID PRN; +ONDANSETRON PF 4 MG/2 ML VIAL. IV PRN; +PROCHLORPERAZINE 10 MG/2 ML VIAL. IV PRN; +VANCOMYCIN 1GM IVPB FOR OMNI 250 ML IV PRN; +fentaNYL PF VIAL 100 MCG/2 ML VIAL IV PRN
[2018-11-23] MEDS ORDERED: BUPIVAC MPF-EPI 0.5%-1:200000 30 ML VIAL. ONE (07:25)
[2018-11-23] MEDS ORDERED: THROMBIN TOPICAL 20,000 UNIT SPRAY.SYRN KIT TP ONE (07:25)
[2018-11-23] MEDS ORDERED: GELATIN SPONGE SIZE 100. ONE (07:25)
[2018-11-23] MEDS: fentaNYL PF VIAL 100 MCG/2 ML VIAL IV PRN ×4 (07:50→12:40)
[2018-11-23 07:54] LABS: CALCIUM 9.8 mg/dL (8.5-10.1); CREATININE 0.5 mg/dL (0.6-1.0); GFR 129.1; POTASSIUM 4.5 mmol/L (3.5-5.1)
[2018-11-23] MEDS ORDERED: PROPOFOL 100 ML IV ONE (07:56)
[2018-11-23 08:00] LABS: ALBUMIN 3.2 g/dL (3.4-5.0); ALBUMIN/GLOBULIN RATIO 0.7 (1.0-1.7); TOTAL BILIRUBIN 0.4 mg/dL (0.2-1.0); TOTAL PROTEIN 7.6 g/dL (6.4-8.2)
[2018-11-23] MEDS ORDERED: NEOSTIGMINE 10 MG/10 ML VIAL. ONE (08:02)
[2018-11-23] MEDS ORDERED: DESFLURANE > 120 MINUTES IH ONE (08:02)
[2018-11-23] MEDS ORDERED: ROCURONIUM 50 MG/5 ML VIAL. ONE (08:03)
[2018-11-23] MEDS ORDERED: GLYCOPYRROLATE 1 MG/5 ML VIAL. ONE (08:03)
[2018-11-23] MEDS ORDERED: REMIFENTANIL 2 MG VIAL. IV ONE (08:03)
[2018-11-23] MEDS ORDERED: MIDAZOLAM HCL/PF 2 MG/2 ML VIAL. ONE (08:03)
[2018-11-23] MEDS ORDERED: fentaNYL PF VIAL 100 MCG/2 ML VIAL ONE ×2 (08:03→12:14)
[2018-11-23] MEDS ORDERED: PHENYLEPHRINE 10 MG/ML VIAL. ONE (08:22)
[2018-11-23] MEDS ORDERED: KETAMINE HCL IN NACL, ISO-OSM 50 MG/5 ML SYRINGE ONE (09:42)
[2018-11-23] MEDS ORDERED: NALOXONE 0.4 MG/ML VIAL. IV PRN (12:00)
[2018-11-23] MEDS ORDERED: ONDANSETRON PF 4 MG/2 ML VIAL. IV PRN (12:00)
[2018-11-23] MEDS ORDERED: diphenhydrAMINE HCL 25 MG CAPSULE PO PRN (12:00)
[2018-11-23] MEDS ORDERED: CALCIUM CARBONATE 500 MG TAB.CHEW PO PRN (12:00)
[2018-11-23] MEDS ORDERED: MAG HYDROX/ALUMINUM HYD/SIMETH 30 ML ORAL.SUSP PO PRN (12:00)
[2018-11-23] MEDS ORDERED: ZOLPIDEM 5 MG TABLET. PO PRN (12:00)
[2018-11-23] MEDS ORDERED: ALBUTEROL SULFATE 2.5 MG/3 ML NEBU. INH PRN (12:00)
[2018-11-23] MEDS ORDERED: 0.9 % SODIUM CHLORIDE 10 ML DISP.SYRIN. IV PRN (12:00)
[2018-11-23] MEDS ORDERED: MAGNESIUM HYDROXIDE 2,400 MG/30 ML ORAL.SUSP. PO PRN (12:00)
--- NOTE | 2018-11-23 12:20 | OP ---
DATE OF SURGERY: 11/23/2018 PREOPERATIVE DIAGNOSIS: Herniated cervical disc, C6-C7 with severe left cervical radiculopathy. POSTOPERATIVE DIAGNOSIS: Herniated cervical disc, C6-C7 with severe left cervical radiculopathy. OPERATION PERFORMED: Anterior cervical microdiscectomy C6-C7, anterior cervical interbody fusion C6-C7 with interbody fusion cage packed with allograft and autograft bone, anterior cervical plate C6-C7, partial removal of hardware C5-C6. The operation was done with EMG monitoring, SSEP monitoring, NIMS monitoring, motor evoked potentials, fluoroscopy and microscopic dissection. SURGEON: Marcelo Osorio M.D. CLAIM INSPECTOR: BRODIE Moralez who assisted with the exposure, the microdiscectomy and partial removal of plate as well as placement of plate and closure. OPERATIVE INDICATIONS: The patient is a pleasant 53-year-old woman who in the past has undergone an ACDF at C5-C6 and did very well. She then developed acute very severe pain in the neck and the left arm and on imaging studies there was a large disc protrusion at C6-C7, the level below her previous operation. The pain was excruciatingly severe, the patient was bedfast, and had difficulty controlling her pain even with large amounts of narcotic pain medication. Imaging studies were obtained, which demonstrated the disc and I recommended an anterior cervical discectomy and fusion at this level. I spoke with her about the surgery and the risks involved. I discussed the technique, she understood, she wished to go ahead. DESCRIPTION OF PROCEDURE: Following general endotracheal intubation, the patient was positioned supine on the operating room table. The anterior cervical region was then prepped and draped in standard fashion. CATHLEEN hose and AV impulse boots were applied for DVT prophylaxis. The microscope was draped. Fluoroscopy was draped and brought into the field. Vancomycin 1 gram was given prior to surgery. Using fluoroscopic guidance, an incision was made on the right side from the midline around to the right side in a small skin crease. I dissected the subcutaneous tissue and I dissected around the medial aspect of the sternocleidomastoid and carotid artery sheath down to the anterior cervical vertebral body. There was considerable scarring and this portion of the procedure was slowed by this, but I worked gently down to the bone and freed it of scar exposing the bottom portion of the plate, placing self-retaining retractors in the longus colli muscle and then I removed the screw from the plate at C6 and placed a screw in this location, a 14 mm and also a screw in C7. I distracted the disc space and brought in the microscope during this time, and the remainder of surgery was done with a microscope using microscopic technique. I incised the anterior annulus with #11 blade and performed a generous discectomy with pituitary rongeurs. I scraped away cartilaginous endplate posteriorly, then I began to remove the large central bilateral herniated disc and worked down and removed multiple disc fragments. As I worked, the dura became decompressed. At this point, I had not yet found a large disc herniation on the left side, something which I thought could explain the severe pains. So, I continued to very gently work laterally on the left side, trimming bone and soft tissue and exposing farther and farther to the left. I then saw disc material protruding and I grabbed this with a micropituitary and gently teased back a very large disc fragment, which completely decompressed the entire region. The foramina were opened using the blunt hook. I did inspect the right side as well. I then measured and placed an 8 mm interbody fusion cage, which was packed with allograft and autograft bone. The autograft bone I obtained from shaving away the cancellous bone spurs and supplementing this with allograft for the fusion. Once the cage was in position, I drilled away the inferior portion of the C6 plate and removed the two screws inferiorly. I then placed a 12 mm Innov[employer] plate and used four 14 mm screws, which were then placed and secured and the construct looked excellent. I irrigated copiously with antibiotic solution. Prior to placement of the interbody fusion cage I had assured myself of perfect hemostasis. All the openings were closed with bone wax. The plate was secure. After removing the retractors, I explored carefully and Valsalva the patient and assured myself of perfect hemostasis. I then closed the wound in layers with the platysma as a separate layer with absorbable sutures. The skin was closed with 4-0 subcuticular stitch. The operation went very well and the patient was awakened and eventually taken to recovery room in excellent condition. I was quite pleased with the surgery. MARCELO P. JOE, MD DR: BELLE/randee JOB#: [id number] / [id number] JUDSON
[2018-11-23] MEDS ORDERED: IPRATRPIUM/ALBUTEROL 0.5/2.5MG 3 ML NEBU. ONE (12:37)
[2018-11-23] MEDS ORDERED: IPRATRPIUM/ALBUTEROL 0.5/2.5MG 3 ML NEBU. NEB ONE (12:45)
[2018-11-23] MEDS: MORPHINE SULFATE 4 MG/ML VIAL. IV PRN ×2 (12:59→13:42)
[2018-11-23] MEDS: POTASSIUM CL 20MEQ D5-0.45NACL 1,000 ML IV SCH (13:00)
[2018-11-23] MEDS ORDERED: BENZONATATE 100 MG CAPSULE. PO PRN (14:00)
--- NOTE | 2018-11-23 14:15 | NUR ---
Rec'd from PACU per bed, alert & drowsy, ambulated to bathroom upon arrival with 1 person assist, slightly unsteady gait, gait belt in use, anterior cervical dressing clean, dry & intact with soft cervical collar in place for support, refused ice pack to neck instructed to needed to use ice her & also when dismissed. Voided 400cc of cloudy yellow urine. Has productive cough. Bilateral CATHLEEN hose & NANCY in place. Family member cousin-Suzette at bedside who will be spending the night with patient. Side rails up, call light within reach will continue to observe
[2018-11-23] MEDS: METHOCARBAMOL 750 MG TABLET PO SCH ×2 (14:33→21:09)
[2018-11-23] MEDS: oxyCODONE IR 5 MG TABLET PO PRN ×3 (15:29→21:15)
[2018-11-23] MEDS: COLESTIPOL HCL 1 GM TABLET PO SCH (21:00)
[2018-11-23] MEDS: DOCUSATE SODIUM 100 MG CAPSULE. PO SCH (21:09)
[2018-11-23] MEDS ORDERED: VANCOMYCIN 1 GM in IV NORMAL SALINE 250ML 250 ML IV ONE (21:30)
[2018-11-24] MEDS: POTASSIUM CL 20MEQ D5-0.45NACL 1,000 ML IV SCH (02:20)
[2018-11-24 03:00] VITALS: BP 120/68
[2018-11-24] MEDS: fentaNYL PF VIAL 100 MCG/2 ML VIAL IV PRN ×2 (04:34→10:00)
--- NOTE | 2018-11-24 06:14 | NUR ---
Patient doesn't drink water, drank plenty of grape juice. Voiding w/o difficulty and having a BM. Refused ice all noc. Wearing C collar. Fentanyl given at 0430. Anticipates dismissal today.
[2018-11-24 07:00] VITALS: BP 107/71
[2018-11-24] MEDS: oxyCODONE IR 5 MG TABLET PO PRN ×2 (07:31→13:35)
--- NOTE | 2018-11-24 07:56 | NUR ---
See paper documentation for non administered medications from 11/23/18 at 2100 until 0600 11/24/18
[2018-11-24] MEDS: COLESTIPOL HCL 1 GM TABLET PO SCH (09:59)
[2018-11-24] MEDS: DOCUSATE SODIUM 100 MG CAPSULE. PO SCH (09:59)
[2018-11-24] MEDS: METHOCARBAMOL 750 MG TABLET PO SCH ×2 (09:59→13:35)
[2018-11-24 11:00] VITALS: BP 120/69
--- NOTE | 2018-11-24 11:45 | DISCH ---
DISCHARGE INSTRUCTIONS Condition on Discharge Condition on Discharge: Stable Activity After Discharge Activity Instructions for Disc: Activity as tolerated, Avoid exertion Bathing Instructions: Shower-keep dressing dry, No Tub Bath until see Lifting Instructions after Dis: No heavy lifting, No pulling or pushing, Do not lift >10 pounds Exercise Instruction after Dis: Progress as tolerated Driving Instructions after Dis: Other, see below Weight Bearing Status after Di: As tolerated Diet after Discharge Diet after Discharge: Regular Additional Diet Restrictions: resume home diet Diet Texture: Regular Swallowing Supervision: None needed Wound Incision Care Wound/Incision Care: Ice to area for comfort, No wound care needed Other wound/incision instructi: may remove dressing in 48 hrs then may shower, no soaking Contacting the DRRiccardo after DC Call your doctor for: Concerns you may have Follow-Up Follow up with: Dr. Diaz's nurse in 2 weeks [phone] Treatment/Equipment after DC Adaptive Equipment Issued: None ARIELLE DIAZ MD Nov 24, 2018 11:45
[2018-11-24] MEDS ORDERED: METH750T2 PO (11:48)
[2018-11-24] MEDS ORDERED: OXYC5TAB4 PO (11:48)
[2018-11-24] MEDS ORDERED: DOCU-109 PO (11:48)
--- NOTE | 2018-11-24 12:46 | NUR ---
SW following for discharge planning. Discussed with RN, RN advised pt is from home and walks around fine. RN advised no SW needs and anticipates pt will discharge home with self care today.
--- NOTE | 2018-11-24 13:15 | PDOC ---
PROGRESS NOTES Subjective Subjective POD #1 s/p ACDF C6-7 Left arm pain resolved Objective Objective Vital Signs Date Time Temp Pulse Resp B/P (MAP) Pulse Ox O2 Delivery O2 Flow Rate FiO2 11/24/18 11:00 97.7 94 18 120/69 (86) 96 Room Air 97.7 11/23/18 14:30 2.0 Intake and Output 11/24/18 06:59 Intake Total 1890 ml Output Total 825 ml Balance 1065 ml Intake Oral 240 ml IV Total 1650 ml Output Urine Total 800 ml Estimated Blood Loss 25 ml # Voids 3 # Bowel Movements 1 Physical Exam General: Alert, Oriented X3, Cooperative, No acute distress, Other (voice clear ) Neuro: Normal speech, Strength at 5/5 X4 ext Skin: Other (dressing C,D,I, flat) Plan Plan of Care ok to dc home f/u 2 weeks Comment Review of Relevant I have reviewed the following items karthikeyan (where applicable) has been applied. Labs Laboratory Tests Test 11/23/18 07:30 Nasal Screen MRSA (PCR) Negative (Negative) Sodium Level 142 mmol/L (136-145) Potassium Level 4.5 mmol/L (3.5-5.1) Chloride Level 105 mmol/L (98-107) Carbon Dioxide Level 28 mmol/L (21-32) Anion Gap 9 (6-14) Blood Urea Nitrogen 13 mg/dL (7-20) Creatinine 0.5 mg/dL (0.6-1.0) Estimated GFR (Cockcroft-Gault) 129.1 BUN/Creatinine Ratio 26 (6-20) Glucose Level 99 mg/dL (70-99) Calcium Level 9.8 mg/dL (8.5-10.1) Total Bilirubin 0.4 mg/dL (0.2-1.0) Aspartate Amino Transf (AST/SGOT) 29 U/L (15-37) Alanine Aminotransferase (ALT/SGPT) 73 U/L (14-59) Alkaline Phosphatase 142 U/L (46-116) Total Protein 7.6 g/dL (6.4-8.2) Albumin 3.2 g/dL (3.4-5.0) Albumin/Globulin Ratio 0.7 (1.0-1.7) Medications Current Medications Ondansetron HCl (Zofran) 4 mg PRN Q6HRS PRN IV NAUSEA/VOMITING; Start 11/23/18 at 07:00; Stop 11/23/18 at 15:01; Status DC Fentanyl Citrate (Fentanyl 2ml Vial) 25 mcg PRN Q5MIN PRN IV MILD PAIN; Start 11/23/18 at 07:00; Stop 11/23/18 at 15:01; Status DC Fentanyl Citrate (Fentanyl 2ml Vial) 50 mcg PRN Q5MIN PRN IV MODERATE TO SEVERE PAIN Last administered on 11/23/18at 12:40; Start 11/23/18 at 07:00; Stop 11/23/18 at 15:01; Status DC Morphine Sulfate (Morphine Sulfate) 1 mg PRN Q10MIN PRN IV SEVERE PAIN Last administered on 11/23/18at 13:42; Start 11/23/18 at 07:00; Stop 11/23/18 at 17:47 ; Status DC Ringer's Solution 1,000 ml @ 30 mls/hr Q24H IV Last administered on 11/23/18at 07:50; Start 11/23/18 at 07:00; Stop 11/23/18 at 15:01; Status DC Lidocaine HCl (Xylocaine-Mpf 1% 2ml Vial) 2 ml PRN 1X PRN ID PRIOR TO IV START ; Start 11/23/18 at 07:00; Stop 11/23/18 at 15:01; Status DC Hydromorphone HCl (Dilaudid) 0.5 mg PRN Q10MIN PRN IV SEV PAIN, Second choice; Start 11/23/18 at 07:00; Stop 11/23/18 at 15:01; Status DC Prochlorperazine Edisylate (Compazine) 5 mg PACU PRN PRN IV NAUSEA, MRX1 Last administered on 11/23/18at 12:58; Start 11/23/18 at 07:00; Stop 11/23/18 at 15:01 ; Status DC Vancomycin HCl 250 ml @ 250 mls/hr 1X PREOP PRN IV PRIOR TO PROCEDURE Last administered on 11/23/18at 09:21; Start 11/23/18 at 06:00; Stop 11/23/18 at 18:00 ; Status DC Bacitracin 55812 unit/Sodium Chloride 1,000 ml @ 1,000 mls/hr 1X ONCE IRR Last administered on 11/23/18at 09:41; Start 11/23/18 at 06:00; Stop 11/23/18 at 06:59; Status DC Gelatin (Gelfoam Size 100) 1 each STK-MED ONCE .ROUTE Last administered on 08/31at 09:41; Start 11/23/18 at 07:25; Stop 11/23/18 at 07:27; Status DC Bupivacaine HCl/ Epinephrine Bitart (Sensorcain-Mpf Epi 0.5%-1:134386) 30 ml STK -MED ONCE .ROUTE Last administered on 11/23/18at 09:41; Start 11/23/18 at 07:25 ; Stop 11/23/18 at 07:27; Status DC Thrombin 20,000 unit STK-MED ONCE TP Last administered on 11/23/18at 09:41; Start 11/23/18 at 07:25; Stop 11/23/18 at 07:27; Status DC Propofol 100 ml @ As Directed STK-MED ONCE IV ; Start 11/23/18 at 07:56; Stop 11/23/18 at 07:58; Status DC Desflurane (Suprane) 90 ml STK-MED ONCE IH ; Start 11/23/18 at 08:02; Stop 11/23 at 08:04; Status DC Neostigmine Methylsulfate (Bloxiverz) 10 mg STK-MED ONCE .ROUTE ; Start at 08:02; Stop 11/23/18 at 08:05; Status DC Fentanyl Citrate (Fentanyl 2ml Vial) 100 mcg STK-MED ONCE .ROUTE ; Start at 08:03; Stop 11/23/18 at 08:05; Status DC Remifentanil HCl (Ultiva) 2 mg STK-MED ONCE IV ; Start 11/23/18 at 08:03; Stop 11/23/18 at 08:05; Status DC Glycopyrrolate (Robinul) 1 mg STK-MED ONCE .ROUTE ; Start 11/23/18 at 08:03; Stop 11/23/18 at 08:06; Status DC Rocuronium Antler (Zemuron) 50 mg STK-MED ONCE .ROUTE ; Start 11/23/18 at 08:03 ; Stop 11/23/18 at 08:06; Status DC Midazolam HCl (Versed) 2 mg STK-MED ONCE .ROUTE ; Start 11/23/18 at 08:03; Stop 11/23/18 at 08:06; Status DC Phenylephrine HCl (Sumeet-Synephrine Inj) 10 mg STK-MED ONCE .ROUTE ; Start at 08:22; Stop 11/23/18 at 08:24; Status DC Ketamine HCl (Ketamine) 50 mg STK-MED ONCE .ROUTE ; Start 11/23/18 at 09:42; Stop 11/23/18 at 09:44; Status DC Albuterol Sulfate (Ventolin Neb Soln) 8.5 mg PRN Q6HRS PRN INH SHORTNESS OF BREATH; Start 11/23/18 at 12:00 Colestipol HCl (Colestid) 1 gm BID PO Last administered on 11/24/18at 09:59; Start 11/23/18 at 21:00 Benzonatate (Tessalon Perle) 200 mg PRN TID PRN PO COUGH; Start 11/23/18 at 14: 00 Fentanyl Citrate (Fentanyl 2ml Vial) 50 mcg PRN Q2HR PRN IV PAIN Last administered on 11/24/18at 10:00; Start 11/23/18 at 12:00 Vancomycin HCl 1 gm/Sodium Chloride 250 ml @ 250 mls/hr 1X ONCE IV Last administered on 11/23/18at 21:10; Start 11/23/18 at 21:30; Stop 11/24/18 at 01:28 ; Status DC Al Hydroxide/Mg Hydroxide (Mylanta Plus Xs) 30 ml PRN Q3HRS PRN PO HEARTBURN / GAS; Start 11/23/18 at 12:00 Calcium Carbonate/ Glycine (Tums) 500 mg PRN Q3HRS PRN PO INDIGESTION; Start at 12:00 Diphenhydramine HCl (Benadryl) 25 mg PRN Q6HRS PRN PO ITCHING; Start 11/23/18 at 12:00 Zolpidem Tartrate (Ambien) 5 mg PRN QHS PRN PO INSOMNIA, MAY REPEAT IN 1HR; Start 11/23/18 at 12:00 Naloxone HCl (Narcan) 0.1 mg PRN Q2MIN PRN IV ADMIN; Start 11/23/18 at 12:00 Sodium Chloride (Normal Saline Flush) 3 ml QSHIFT PRN IV AFTER MEDS AND BLOOD DRAWS; Start 11/23/18 at 12:00 Potassium Chloride/Dextrose/ Sod Cl 1,000 ml @ 75 mls/hr [id number] IV ; Start 08/31 at 13:00 Oxycodone HCl (Roxicodone) 5 mg PRN Q4HRS PRN PO MILD PAIN, 1ST CHOICE Last administered on 11/23/18at 21:15; Start 11/23/18 at 12:00 Oxycodone HCl (Roxicodone) 10 mg PRN Q4HRS PRN PO MODERATE PAIN, SEVERE PAIN Last administered on 11/24/18at 07:31; Start 11/23/18 at 12:00 Methocarbamol (Robaxin) 750 mg TID PO Last administered on 11/24/18at 09:59; Start 11/23/18 at 14:00 Docusate Sodium (Colace) 100 mg BID PO Last administered on 11/24/18at 09:59; Start 11/23/18 at 21:00 Magnesium Hydroxide (Milk Of Magnesia) 2,400 mg PRN Q12HR PRN PO CONSTIPATION; Start 11/23/18 at 12:00 Ondansetron HCl (Zofran) 4 mg PRN Q6HRS PRN IV NAUESA, 1ST CHOICE; Start at 12:00 Fentanyl Citrate (Fentanyl 2ml Vial) 100 mcg STK-MED ONCE .ROUTE ; Start at 12:14; Stop 11/23/18 at 12:16; Status DC Albuterol/ Ipratropium (Duoneb) 3 ml 1X ONCE NEB Last administered on at 12:42; Start 11/23/18 at 12:45; Stop 11/23/18 at 12:46; Status DC Albuterol/ Ipratropium (Duoneb) 3 ml STK-MED ONCE .ROUTE ; Start 11/23/18 at 12: 37; Stop 11/23/18 at 12:39; Status DC Active Scripts Active Valium (Diazepam) 5 Mg Tablet 5 Mg PO Q8HRS PRN Percocet 5-325 Mg Tablet (Oxycodone/Acetaminophen) 1 Each Tablet 1-2 Each PO Q6H PRN pain Proair Hfa Inhaler (Albuterol Sulfate) 8.5 Gm Hfa.aer.ad 1 Puff INH PRN Q6HRS PRN Reported Benzonatate 200 Mg Capsule 200 Mg PO TID PRN Percocet 7.5-325 Mg Tablet (Oxycodone/Acetaminophen) 1 Each Tablet 1 Tab PO PRN Q6HRS PRN Colestipol Hcl 1 Gm Tablet 1 Gm PO BID Vitals/I & O Vital Sign - Last 24 Hours 11/23/18 11/23/18 11/23/18 11/23/18 13:17 13:32 13:40 13:42 Pulse 118 118 Resp 22 20 20 B/P (MAP) 149/80 135/78 Pulse Ox 99 91 O2 Delivery Nasal Cannula Nasal Cannula Nasal Cannula O2 Flow Rate 2 2 2 2.0 11/23/18 11/23/18 11/23/18 11/23/18 13:45 13:45 14:00 14:15 Temp 99.7 99.7 Pulse 121 119 119 Resp 14 B/P (MAP) 139/96 (110) 139/88 (105) 131/84 (100) Pulse Ox 92 O2 Delivery Nasal Cannula Nasal Cannula O2 Flow Rate 2.0 2.0 11/23/18 11/23/18 11/23/18 11/23/18 14:15 14:30 16:30 17:43 Pulse 90 123 124 124 B/P (MAP) 129/84 (99) 128/83 (98) 120/84 (96) 121/83 (96) Pulse Ox 92 92 O2 Delivery Nasal Cannula Room Air O2 Flow Rate 2.0 11/23/18 11/23/18 11/24/18 11/24/18 19:00 21:15 03:00 04:34 Temp 98.1 98.5 98.1 98.5 Pulse 106 111 Resp 18 20 18 B/P (MAP) 124/74 (91) 120/68 (85) Pulse Ox 93 93 93 O2 Delivery Room Air Room Air Room Air 11/24/18 11/24/18 11/24/18 11/24/18 05:05 07:00 07:31 11:00 Temp 98.2 97.7 98.2 97.7 Pulse 103 94 Resp 20 18 20 18 B/P (MAP) 107/71 (83) 120/69 (86) Pulse Ox 94 96 O2 Delivery Room Air Room Air Room Air Intake and Output 11/23/18 11/23/18 11/24/18 14:59 22:59 06:59 Intake Total 1650 ml 240 ml Output Total 425 ml 400 ml Balance 1225 ml -160 ml BLAINE ALDRICH APRN Nov 24, 2018 13:15
--- NOTE | 2018-11-24 13:40 | NUR ---
Discharge: Pt dc to home per private car accompanied by friend. Left with soft neck brace, rx for oxycodone, belongings. IV DC'ed no complications. Ptstates she understands dc, incisional care, and follow up instructions because this is her second surgery. No concerns.
--- NOTE | 2018-11-24 16:07 | PATHOLOGY ---
[facility] Accession Number: [id number] . 01 Material submitted: . CERVICAL DISC . 01 Clinical history: . Cervical herniated disc with radiculopathy . 02 Diagnosis: Segments of fibrocartilaginous tissue and bone, cervical disc: - Degenerative changes of fibrocartilaginous tissue. P/11/24/2018 . 02 Comment: There is no evidence of an acute inflammatory process or malignancy. (JPM:[facility] 11/24/2018) . 02 Electronically signed: . Henok Moffett MD, Pathologist NPI- [id number] . 01 Gross description: . The specimen is received in formalin, labeled "Heckert, Michelle, cervical disc" and consists of multiple fibrous fragments of pink-avelar tissue and bone measuring 3.0 x 3.0 x 0.5 cm in aggregate. A signs and displays sales representative portion is submitted in A1 following decalcification. (SDY; 11/23/2018) SYU/SYU . 02 Pathologist provided ICD-10: M50.30 . 02 CPT . 259776, 601033 Specimen Comment: A courtesy copy of this report has been sent to Specimen Comment: [phone], . Specimen Comment: Report sent to / DR PEMBERTON Specimen Comment: A duplicate report has been generated due to demographic updates. Performed at: 01 [facility] [address], [place] [id number] MD Carrington Magallanes MD Phone: [phone] Performed at: [facility] [address] [place], [place] [id number] MD Henok Moffett MD Phone: [phone]
[2019-03-01] MEDS ORDERED: HYDR-2765 PO (09:18)
[2019-03-01] MEDS ORDERED: ELET40TA PO (09:19)
== END 2018-11-24 13:40 | disposition home or self-care (01) ==
LOC: SURG 07:03 → MERGE 08:30 → 4 SOUTHEST 11:51 → 4 NORTH 18:45
PROVIDERS: ADMIT Neurological Surgery; ATTEND Neurological Surgery
DX: M50.123 Cervical disc disorder at C6-C7 level with radiculopathy (principal); J44.9 Chronic obstructive pulmonary disease, unspecified; M77.9 Enthesopathy, unspecified; F17.210 Nicotine dependence, cigarettes, uncomplicated; Z90.710 Acquired absence of both cervix and uterus; Z90.49 Acquired absence of other specified parts of digestive tract; Z87.442 Personal history of urinary calculi; Z98.1 Arthrodesis status; Z83.3 Family history of diabetes mellitus; Z82.49 Family history of ischemic heart disease and other diseases of the circulatory system
CPT/HCPCS: 20931; 20937; 22551; 22845; 22853; 36415; 76000; 80053; 87641; 94640; 96365; 96375; 96376; 97110; 97162; 97530; A7015; C1713; G0378; G0379; G8978; G8979; G8980; J0780; J2250; J2270; J2704; J2710; J3010; J3370; J3490; J7030; J7050; J7120; J7620; 88304; 88311

== ENCOUNTER → 2019-02-01 | Outpatient (CLI) | payer OTHER ==
[~2019-02-01] MED LIST changes: -BACITRACIN 50,000 UNIT in IV NORMAL SALINE 1000ML BAG 1,000 ML IRR ONE; +DOCU-109 PO; +ELET40TA PO; +HYDR-2765 PO; -HYDROmorphone 2 MG/ML VIAL IV PRN; -IV RINGERS,LACTATED 1000ML 1,000 ML IV SCH; -LIDOCAINE 1% PF 2 ML VIAL. ID PRN; +METH750T2 PO; -ONDANSETRON PF 4 MG/2 ML VIAL. IV PRN; +OXYC5TAB4 PO; -PROCHLORPERAZINE 10 MG/2 ML VIAL. IV PRN; -VANCOMYCIN 1GM IVPB FOR OMNI 250 ML IV PRN; -fentaNYL PF VIAL 100 MCG/2 ML VIAL IV PRN
--- NOTE | 2019-02-01 17:22 | KCIC ---
CERVICAL SPINE 2-3V Clinical Indication: Cervical fusion November 2018. Comparison: Cervical spine radiographs June 28, 2018. Intraoperative fluoroscopy, 11/23/2018. Findings: Revision of ACDF of C5-C6 with removal of the the C6 screws and recontouring of hardware. There is new ACDF of C6-C7. Vertebral body height and alignment are stable. The prevertebral soft tissues are normal. Mild endplate spurring of C4 inferiorly. No acute fracture. C1 lateral masses are symmetric. Multilevel facet hypertrophy of the cervical spine. Lung apices are clear. IMPRESSION: Revision of C5-C6 ACDF with new ACDF of C6-C7. No acute bone abnormality. Electronically signed by: Villa Fernandez MD (02/01/2019 5:19 PM) [id number]
== END | disposition home or self-care (01) ==
LOC: KCIC 10:10
PROVIDERS: ATTEND Neurological Surgery
DX: M46.02 Spinal enthesopathy, cervical region (principal); M89.38 Hypertrophy of bone, other site; Z98.1 Arthrodesis status
CPT/HCPCS: 72040

== ENCOUNTER → 2019-02-15 | Outpatient (CLI) | payer OTHER ==
--- NOTE | 2019-02-15 16:31 | KCIC ---
MR of the right knee HISTORY: Right knee pain, history of locking. TECHNIQUE: Routine multiplanar sequences are obtained. FINDINGS: There is a degenerative tear of the medial meniscus. No evidence of lateral meniscal tear. The anterior and posterior cruciate ligament are intact. Medial collateral ligament is intact. Iliotibial band unremarkable. Fibular collateral ligament, biceps femoris tendon and popliteus tendon are intact. The extensor mechanism is intact. No acute retinacular disruption. Small joint effusion. Moderate size Rivas's cyst, which contains numerous osteochondral loose bodies. 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 Severe cartilage loss at the medial joint compartment with subchondral cysts. Mild degenerative changes at the lateral joint. No acute fracture. No aggressive bone destruction. IMPRESSION: 1. Medial meniscal tear. 2. 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 3. Moderate Rivas's cyst, containing multiple loose bodies. Electronically signed by: Dario Morales MD (02/15/2019 4:28 PM) [id number]
== END | disposition home or self-care (01) ==
LOC: KCIC MRI 15:20
PROVIDERS: ATTEND Orthopaedic Surgery
DX: S83.241A Other tear of medial meniscus, current injury, right knee, initial encounter (principal); M25.461 Effusion, right knee; M71.21 Synovial cyst of popliteal space [Baker], right knee; M22.41 Chondromalacia patellae, right knee; M17.11 Unilateral primary osteoarthritis, right knee; X58.XXXA Exposure to other specified factors, initial encounter; Y93.89 Activity, other specified; Y92.89 Other specified places as the place of occurrence of the external cause; Y99.8 Other external cause status
CPT/HCPCS: 73721

== ENCOUNTER 2019-03-02 06:06 | Day surgery (SDC) | payer OTHER ==
[~2019-03-02] VITALS: Ht 165.1 cm; Wt 72.6 kg
[2019-03-02] MEDS ORDERED: PROPOFOL 20 ML IV ONE (06:40)
[2019-03-02] MEDS ORDERED: ONDANSETRON PF 4 MG/2 ML VIAL. ONE (06:40)
[2019-03-02] MEDS ORDERED: LIDOCAINE 2% PF 5 ML VIAL. ONE (06:40)
[2019-03-02] MEDS ORDERED: DEXAMETHASONE SOD PHOS 4 MG/ML VIAL ONE (06:40)
--- NOTE | 2019-03-02 06:47 | DISCH ---
DISCHARGE INSTRUCTIONS Condition on Discharge Condition on Discharge: Stable Activity After Discharge Activity Instructions for Disc: No restrictions (slow return to activity as tolerated with symptomatic restrictions only) Bathing Instructions: Shower-keep dressing dry, No Tub Bath until see Exercise Instruction after Dis: Progress as tolerated Driving Instructions after Dis: Other, see below Weight Bearing Status after Di: No restrictions Diet after Discharge Diet after Discharge: Regular Additional Diet Restrictions: resume home diet Diet Texture: Regular Liquid Texture: Thin Liquid Swallowing Supervision: None needed Wound Incision Care Wound/Incision Care: Ice to area for comfort, Change dressing (remove dressing in 2 days may then shower no soaking until sutures removed) Contacting the DRRiccardo after DC Call your doctor for: Concerns you may have Follow-Up Follow up with: Dr. Meraz 1 week Treatment/Equipment after DC Adaptive Equipment Issued: Crutches (May use as necessary), Raised toilet seat (prescription issued at her request as home toilet seats are low and painful to get up) BENJY MERAZ MD March 02, 2019 06:47
[2019-03-02] MEDS ORDERED: ONDANSETRON PF 4 MG/2 ML VIAL. IV PRN (07:00)
[2019-03-02] MEDS ORDERED: PROCHLORPERAZINE 10 MG/2 ML VIAL. IV PRN (07:00)
[2019-03-02] MEDS ORDERED: fentaNYL PF VIAL 100 MCG/2 ML VIAL IV PRN ×2 (07:00)
[2019-03-02] MEDS ORDERED: HYDROmorphone 2 MG/ML VIAL IV PRN (07:00)
[2019-03-02] MEDS ORDERED: IV RINGERS,LACTATED 1000ML 1,000 ML IV SCH (07:00)
[2019-03-02] MEDS ORDERED: MORPHINE SULFATE 2 MG/ML VIAL. IV PRN (07:00)
[2019-03-02] MEDS ORDERED: IPRATRPIUM/ALBUTEROL 0.5/2.5MG 3 ML NEBU. ONE (07:11)
[2019-03-02] MEDS ORDERED: IPRATRPIUM/ALBUTEROL 0.5/2.5MG 3 ML NEBU. NEB ONE (07:15)
[2019-03-02] MEDS ORDERED: fentaNYL PF VIAL 100 MCG/2 ML VIAL ONE ×3 (07:16→10:47)
[2019-03-02] MEDS ORDERED: MIDAZOLAM HCL/PF 2 MG/2 ML VIAL. ONE (07:16)
[2019-03-02] MEDS ORDERED: BUPIVAC MPF-EPI 0.5%-1:200000 30 ML VIAL. ONE (07:29)
[2019-03-02] MEDS ORDERED: KETOROLAC 30 MG/ML INJ FOR OR. INJ ONE (08:56)
--- NOTE | 2019-03-02 10:56 | PDOC4 ---
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 Estimated blood loss: 5 mL Complications: None Specimens: Loose bodies to pathology Operative indications: Patient is a 54-year-old female with sharp pain particularly with pivoting twisting activities as well as occasional intermittent locking and sharp pain without apparent provocation. She had a documented medial meniscus tear and evidence of multiple loose bodies in her Rivas cyst. We had talked about addressing both conditions and specifically that I can't undo any degenerative changes that are present in the knee and she may need ongoing symptomatic treatment for that in addition to addressing the above pathology. We also covered risks benefits postoperative course of the procedure including the possibility of infection continued pain nerve or blood vessel damage medical or other anesthetic competitions among others all her questions were answered she wishes to proceed with surgical evaluation and treatment. Operative text: Patient was identified procedure verified patient placed in the supine position on the operating table. After adequate amounts of general anesth esia were administered the right lower extremity was prepped and draped in standard sterile fashion with a thigh tourniquet. After timeout was performed patient procedure identified and verified the right lower extremity was exsanguinated by Esmarch bandage tourniquet inflated to 250 mmHg a lateral portal was established a medial portal established using spinal needle localization and the knee joint was systematically examined. She is found to have good patellofemoral tracking a tear involving the posterior horn and body of the medial meniscus which was trimmed back to stable tissue and radiused appropriately to avoid further stress risers. She had a large area of chondral defect with grade 3-4 chondromalacia over the weightbearing surface of the medial femoral condyle and an area of bony eburnation over the medial aspect of the medial tibial plateau. ACL was probed and found to be intact as was the lateral meniscus. Lateral compartment had relatively minimal chondromalacia. The arthroscope was then placed through the intercondylar notch and a posterior medial portal was established under spinal needle localization and the Rivas cyst opening was enlarged with an arthroscopic shaver. An additional posterior medial working portal was likewise established to retrieve over 20 calcified loose bodies from the Rivas cyst. The area was further milked to search for additional loose bodies. Those clearly visualized even trapped in the tissue were removed but I elected not to blindly explore further to avoid damage to do rovascular structures posteriorly. The knee joint was again toured through all compartments to ensure no loose bodies were left after this process and was drained of arthroscopic fluid portals were closed with nylon suture half percent plain Marcaine was used around the fat pad area as well as anterior and posterior medial portals. Sterile dressings were applied patient was returned to recovery room in stable condition having tolerated procedure well BENJY STEVENSON MD March 02, 2019 10:56
[2019-03-02] MEDS ORDERED: oxyCODONE/APAP 7.5/325 1 TAB TABLET PO ONE (11:15)
[2019-03-02 12:15] VITALS: BP 111/56
--- NOTE | 2019-03-03 16:06 | PATHOLOGY ---
[facility] Accession Number: [id number] . 01 Material submitted: . knee - LOOSE BODDIES RIGHT KNEE. Modifiers: right . 01 Clinical history: . Complex tear of medial meniscus . 02 Diagnosis: Segments of bone and cartilage, right knee removal: - Osteocartilaginous loose bodies. (JPM:pit 03/03/2019) QTP/03/03/2019 . 02 Electronically signed: . Henok Moffett MD, Pathologist NPI- [id number] . 01 Gross description: . The specimen is received in formalin, labeled "Heckert, Michelle, loose bodies right knee" and consists of multiple glistening white-avelar segments of cartilage/bone measuring 3.5 x 3.0 x 0.6 cm in aggregate. A hospital insurance representative portion is submitted in A1 following decalcification. (SDY; 03/02/2019) SYU/SYU . 02 Pathologist provided ICD-10: M23.41 . 02 CPT . 855577, 422757 Specimen Comment: A courtesy copy of this report has been sent to Specimen Comment: [phone], . Specimen Comment: Report sent to / DR PEMBERTON Performed at: [address] [facility] [address], [place], [place] [id number] MD Carrington Magallanes MD Phone: [phone] Performed at: 02 [facility] [address] [place], [place] [id number] MD Henok Moffett MD Phone: [phone]
== END 2019-03-02 12:16 | disposition home or self-care (01) ==
LOC: SURG 06:06
PROVIDERS: ATTEND Orthopaedic Surgery
DX: S83.241A Other tear of medial meniscus, current injury, right knee, initial encounter (principal); G43.909 Migraine, unspecified, not intractable, without status migrainosus; F17.210 Nicotine dependence, cigarettes, uncomplicated; X58.XXXA Exposure to other specified factors, initial encounter; Y93.89 Activity, other specified; Y92.89 Other specified places as the place of occurrence of the external cause; Y99.8 Other external cause status; Z90.710 Acquired absence of both cervix and uterus; Z90.49 Acquired absence of other specified parts of digestive tract; Z98.890 Other specified postprocedural states
CPT/HCPCS: 29881; 88304; 88311; 94640; A7015; C1782; J0690; J1100; J2001; J2250; J2405; J2704; J3010; J3490; J7120; J7620; J1885

== ENCOUNTER → 2019-10-04 | Outpatient (CLI) | payer OTHER ==
--- NOTE | 2019-10-04 15:14 | RAD ---
EXAM: Bilateral lower extremity arterial Doppler sonogram. HISTORY: Claudication. TECHNIQUE: Hicks scale and color Doppler sonographic imaging of the lower extremity arteries with spectral waveform analysis was performed. COMPARISON: None. FINDINGS: There are normal triphasic waveforms throughout the right lower extremity arteries, with exception of an abnormal monophasic waveform within the dorsalis pedis artery. There are triphasic waveforms within the left lower extremity arteries, with exception of monophasic waveforms within the posterior tibial and dorsalis pedis arteries. There are normal peak systolic velocities throughout the bilateral lower extremity arteries. IMPRESSION: 1. Abnormal monophasic waveforms within the bilateral dorsalis pedis arteries and left posterior tibial artery, suggesting hemodynamically significant proximal stenosis. 2. No additional evidence of stenosis or occlusion. Electronically signed by: Beena Quiñonez MD (10/04/2019 3:11 PM) [place] [id number]
--- NOTE | 2019-10-05 16:19 | RAD ---
DATE: 10/04/2019. EXAM: DIGITAL SCREEN BILAT W/CAD. HISTORY: Routine mammographic screening. COMPARISON: This is the baseline study.. This study was interpreted with the benefit of Computerized Aided Detection (CAD). FINDINGS: Breast Density: SCATTERED The breast parenchyma shows scattered fibroglandular densities. Breast parenchyma level B.. There are 2 small circumscribed are partially obscured nodules slightly medially on the right at the nipple line. There are no suspicious masses, microcalcifications or architectural distortion on the left. BI-RADS CATEGORY: 0 INCOMPLETE: NEEDS ADDITIONAL IMAGING EVALUATION AND/OR PRIOR MAMMOGRAMS FOR COMPARISON.. RECOMMENDED FOLLOW-UP: ADD ADDITIONAL IMAGING. 1. Sonography of the right 3:00 position to assess two small nodules at baseline. PQRS compliance statement: Patient information was entered into a reminder system with a target due date (now) for the next mammogram. Mammography is a sensitive method for finding small breast cancers, but it does not detect them all and is not a substitute for careful clinical examination. A negative mammogram does not negate a clinically suspicious finding and should not result in delay in biopsying a clinically suspicious abnormality. "Our facility is accredited by the [employer] Mammography Program."
== END | disposition home or self-care (01) ==
LOC: US 13:56
PROVIDERS: ATTEND Family Medicine
DX: Z12.31 Encounter for screening mammogram for malignant neoplasm of breast (principal); I73.9 Peripheral vascular disease, unspecified
CPT/HCPCS: 77067; 93925

== ENCOUNTER → 2019-10-07 | Outpatient (CLI) | payer OTHER ==
--- NOTE | 2019-10-07 15:13 | RAD ---
DATE: 10/07/2019. EXAM: ULTRASOUND BREAST RIGHT. HISTORY: Nodules on baseline screening. Additional imaging is requested. COMPARISON: 10/04/2019. FINDINGS: Sonography of the right breast was performed from the 2:00-4:00 positions. At the 2:00 position 3 cm from the nipple, there is an oval hypoechoic nodule measuring 5 x 4 x 2 mm. 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 There is no clearly suspicious sonographic finding. BI-RADS CATEGORY: 3 PROBABLY BENIGN FINDING(S)-SHORT INTERVAL FOLLOW-UP SUGGESTED. RECOMMENDED FOLLOW-UP: 6M 6 MONTH FOLLOW-UP. 1. 6 month follow-up right breast sonography is recommended to confirm stability of what likely represents a small fibroadenoma at baseline. PQRS compliance statement: Patient information was entered into a reminder system with a target due date 03/04/2020 for the next mammogram. Mammography is a sensitive method for finding small breast cancers, but it does not detect them all and is not a substitute for careful clinical examination. A negative mammogram does not negate a clinically suspicious finding and should not result in delay in biopsying a clinically suspicious abnormality. "Our facility is accredited by the [employer] Mammography Program."
== END | disposition home or self-care (01) ==
LOC: US 11:50
PROVIDERS: ATTEND Family Medicine
DX: N63.12 Unspecified lump in the right breast, upper inner quadrant (principal)
CPT/HCPCS: 76641

== ENCOUNTER → 2020-03-16 | Outpatient (CLI) | payer OTHER ==
--- NOTE | 2020-03-16 11:23 | RAD ---
DATE: 03/16/2020 10:03 AM EXAM: BREAST ultrasound RIGHT HISTORY: Six-month follow-up probably benign nodule in the right breast seen on baseline screening mammogram. COMPARISON: Right mammogram 10/04/2019 and right breast Limited ultrasound of 10/07/2019. Technique: Targeted ultrasound of the upper-outer anterior right breast in the area of sonographic interest was performed at the 2:00 position 3 cm from the nipple. FINDINGS: Targeted ultrasound of the right breast in the area of sonographic interest identifies an oval parallel orientation circumscribed 4 mm nodule is isoechoic and demonstrates no internal vascularity or posterior acoustic shadowing. There is no interval change in size. IMPRESSION: Sonographically benign nodule in the anterior upper inner right breast, compatible with a fibroadenoma. BI-RADS CATEGORY: 2 BENIGN FINDING(S) RECOMMENDED FOLLOW-UP: 6M 6 MONTH FOLLOW-UP Annual screening mammography is recommended, unless clinically indicated sooner based on symptoms or change in physical exam.. She will be due for bilateral screening mammography in 6 months.
== END | disposition home or self-care (01) ==
LOC: US 09:41
PROVIDERS: ATTEND Family Medicine
DX: D24.1 Benign neoplasm of right breast (principal); N60.21 Fibroadenosis of right breast
CPT/HCPCS: 76641

== ENCOUNTER → 2020-10-04 | Outpatient (CLI) | payer OTHER ==
--- NOTE | 2020-10-05 10:55 | RAD ---
DATE: 10/04/2020 3:10 PM EXAM: DIGITAL SCREEN BILAT W/CAD HISTORY: Screening COMPARISON: 10/04/2019 Bilateral full field craniocaudal and mediolateral oblique images were obtained using digital technique. This study was interpreted with the benefit of Computerized Aided Detection (CAD). FINDINGS: Breast Density: FATTY The Breast Parenchyma is primarily fatty replaced. Breast parenchyma level density A. No suspicious masses, microcalcifications or architectural distortion is present to suggest malignancy in either breast. The visualized axillae are unremarkable. IMPRESSION: No mammographic evidence of malignancy. BI-RADS CATEGORY: 1 NEGATIVE RECOMMENDED FOLLOW-UP: 12M 12 MONTH FOLLOW-UP Annual screening mammography is recommended, unless clinically indicated sooner based on symptoms or change in physical exam. PQRS compliance statement: Patient information was entered into a reminder system with a target due date for the next mammogram. Mammography is a sensitive method for finding small breast cancers, but it does not detect them all and is not a substitute for careful clinical examination. A negative mammogram does not negate a clinically suspicious finding and should not result in delay in biopsying a clinically suspicious abnormality. "Our facility is accredited by the [employer] Mammography [employer]."
== END ==
LOC: MAMMO 15:03
PROVIDERS: ATTEND Family Medicine
DX: Z12.31 Encounter for screening mammogram for malignant neoplasm of breast (principal)
CPT/HCPCS: 77067

== ENCOUNTER → 2021-10-08 | Outpatient (CLI) | payer OTHER ==
[~2021-10-08] MED LIST changes: +CYCL10TA19 PO; -CYCL10TA2 PO; +DOXY-181 PO; -DOXY100C14 PO; +METH-562 PO; -METH750T2 PO
--- NOTE | 2021-10-08 15:24 | RAD ---
DATE: 10/08/2021 EXAM: MG 2D BILAT SCREENING HISTORY: Screening COMPARISON: 10/04/2020, 10/07/2019, 10/04/2019, This study was interpreted with the benefit of Computerized Aided Detection (CAD). Breast Density: SCATTERED The breast parenchyma shows scattered fibroglandular densities. Breast pare nchyma level B. FINDINGS: A 5 mm nodule in the right breast at 2:00, 4 cm posterior to the nipple is stable. No suspi cious mass, suspicious calcifications, or architectural distortion in either breast. IMPRESSION: No evidence of malignancy. BI-RADS CATEGORY: 2 BENIGN FINDING(S) RECOMMENDED FOLLOW-UP: 12M 12 MONTH FOLLOW-UP PQRS compliance statement: Patient information was entered into a reminder system with a target due d ate for the next mammogram. Mammography is a sensitive method for finding small breast cancers, but it does not detect them all a nd is not a substitute for careful clinical examination. A negative mammogram does not negate a clin ically suspicious finding and should not result in delay in biopsying a clinically suspicious abnorma lity. "Our facility is accredited by the [employer] Mammography [employer]." Electronically signed by: Marianna Quiles MD (10/08/2021 3:22 PM) [id number]
== END ==
LOC: MAMMO 13:03
PROVIDERS: ATTEND Family Medicine
DX: Z12.31 Encounter for screening mammogram for malignant neoplasm of breast (principal)
CPT/HCPCS: 77067

== ENCOUNTER → 2022-01-23 | Outpatient (CLI) | payer MEDICARE, OTHER ==
[~2022-01-23] MED LIST changes: -OMEP20TA8 PO; +OMEP20TA91 PO
[2022-01-23 09:07] LABS: BASO # 0.1 x10^3/uL (0.0-0.2); BASO % 1 % (0-3); EOS # 0.1 x10^3/uL (0.0-0.7); EOS % 2 % (0-3); HEMATOCRIT 44.1 % (36.0-47.0); LYMPH # 2.8 x10^3/uL (1.0-4.8); LYMPH % 29 % (24-48); MEAN CORPUSCULAR HEMOGLOBIN 31 pg (25-35); MEAN CORPUSCULAR HGB CONC 34 g/dL (31-37); MEAN CORPUSCULAR VOLUME 90 fL (79-100); MONO # 0.7 x10^3/uL (0.0-1.1); MONO % 7 % (0-9); NEUT % 62 % (31-73); PLATELET COUNT 324 x10^3/uL (140-400); RED BLOOD COUNT 4.92 x10^6/uL (3.50-5.40); RED CELL DISTRIBUTION WIDTH 13.9 % (11.5-14.5); WHITE BLOOD COUNT 9.7 x10^3/uL (4.0-11.0)
[2022-01-23 09:24] LABS: ALBUMIN 3.9 g/dL (3.4-5.0); ALBUMIN/GLOBULIN RATIO 0.9 (1.0-1.7); CREATININE 0.8 mg/dL (0.6-1.0); GFR 74.2; POTASSIUM 4.4 mmol/L (3.5-5.1); TOTAL BILIRUBIN 0.3 mg/dL (0.2-1.0); TOTAL PROTEIN 8.2 g/dL (6.4-8.2)
[2022-01-23 09:26] LABS: CHOLESTEROL/HDL RATIO 4.2
== END ==
LOC: LAB 08:32
PROVIDERS: ATTEND Internal Medicine Cardiovascular Disease
DX: E78.5 Hyperlipidemia, unspecified (principal)
CPT/HCPCS: 36415; 80053; 80061; 83695; 85025